=== PATIENT | female | born 1965 | race Caucasian/White ===

== ENCOUNTER 2024-01-17 07:22 | Observation (INO) ==
--- NOTE | 2023-11-28 08:32 | PAT Medication Instructions ---
Medication Instructions Date of Service November 28, 2023 Home Medications albuterol sulfate 90 mcg/actuation aerosol inhaler 1 inh inhalation QID PRN bupropion HCl 150 mg 24 hr tablet, extended release 150 mg PO QAM buspirone 10 mg tablet 10 mg PO BID celecoxib 200 mg capsule (Celebrex) 200 mg PO QAM cetirizine 10 mg capsule (Zyrtec) 10 mg PO BID losartan 25 mg tablet 25 mg PO QAM montelukast 10 mg tablet 10 mg PO QAM multivitamin 1 tab PO QAM pregabalin 50 mg capsule 50 mg PO BID ASK your surgeon for instructions celecoxib 200 mg capsule (Celebrex) 200 mg PO QAM DO NOT take the morning of surgery cetirizine 10 mg capsule (Zyrtec) 10 mg PO BID losartan 25 mg tablet 25 mg PO QAM multivitamin 1 tab PO QAM Take morning of surgery With a small sip of water, OTHERWISE NOTHING TO EAT OR DRINK AFTER MIDNIGHT: albuterol sulfate 90 mcg/actuation aerosol inhaler 1 inh inhalation QID PRN(use if needed; please bring with you to hospital day of surgery if possible) bupropion HCl 150 mg 24 hr tablet, extended release 150 mg PO QAM buspirone 10 mg tablet 10 mg PO BID montelukast 10 mg tablet 10 mg PO QAM pregabalin 50 mg capsule 50 mg PO BID Take evening before surgery albuterol sulfate 90 mcg/actuation aerosol inhaler 1 inh inhalation QID PRN(if needed) buspirone 10 mg tablet 10 mg PO BID cetirizine 10 mg capsule (Zyrtec) 10 mg PO BID pregabalin 50 mg capsule 50 mg PO BID Other Notes If you have any questions please call us at [phone] or [phone] or [phone] or [phone]
--- NOTE | 2023-11-28 11:19 | Anesthesiology Consultation ---
Date of Service November 28, 2023 Assessment & Plan (1) Encounter for pre-operative examination: Plan - upcoming S PCP pre-operative evaluation 12/06/23. - dental infection Rx Augmentin: she states completed antibiotic course as instructed by PCP. Chart Review Chart Review: Pending: Refer to Additional Notes / Consult section and Patient seen in Pre Admission Testing Teaching & Discussion Pre-Anesthesia Teaching/Discussion Notes: Instructed NPO after midnight before surgery, except medications with 15 cc of water. Medication instructions provided according to the PAT guidelines. History Surgery Operation Date: 12/26/23 08:40 Proposed Procedures p Left Knee Unicompartment Total Knee Arthroplasty - Ayo Henao MD Height/Weight Height: 5 ft 4 in Weight: 81.5 kg Allergies Allergy/AdvReac Type Severity Reaction Status Date / Time codeine Allergy Mild ITCHING Verified 11/27/23 15:33 hydrocodone Allergy Mild itching Verified 11/27/23 15:33 latex Allergy Mild skin Verified 11/27/23 15:33 irritation morphine Allergy Mild itch Verified 11/27/23 15:33 nickel Allergy Mild itching Verified 11/27/23 15:33 and rash oxycodone [From OxyContin] Allergy Mild itching/travis Verified 11/27/23 15:33 h tramadol Allergy Mild RASH Verified 11/27/23 15:33 [place] GOLD Allergy Mild itching/travis Uncoded 11/27/23 15:33 h Medications Home Medications Medication Instructions Recorded Confirmed Last Taken albuterol sulfate 90 mcg/actuation 1 inh inhalation QID PRN sob 11/27/23 11/27/23 Unknown aerosol inhaler bupropion HCl 150 mg 24 hr tablet, 150 mg PO QAM 11/27/23 11/27/23 Unknown extended release buspirone 10 mg tablet 10 mg PO BID 11/27/23 11/27/23 Unknown celecoxib 200 mg capsule (Celebrex) 200 mg PO QAM 11/27/23 11/27/23 Unknown cetirizine 10 mg capsule (Zyrtec) 10 mg PO BID 11/27/23 11/27/23 Unknown losartan 25 mg tablet 25 mg PO QAM 11/27/23 11/27/23 Unknown montelukast 10 mg tablet 10 mg PO QAM 11/27/23 11/27/23 Unknown multivitamin 1 tab PO QAM 11/27/23 11/27/23 Unknown pregabalin 50 mg capsule 50 mg PO BID 11/27/23 11/27/23 Unknown famotidine 10 mg tablet 10 mg PO BID PRN reflux 11/28/23 11/28/23 Unknown magnesium 100 mg tablet 100 mg PO PM 11/28/23 11/28/23 Unknown omega-3s 300 yr-uig-drg-other cap PO QAM 11/28/23 Unknown [id number] oil 1,000 mg capsule ([place]-3 Fish Oil) omeprazole 20 mg capsule,delayed 20 mg PO QAM 11/28/23 11/28/23 Unknown release valacyclovir 500 mg tablet 1,000 mg PO BID PRN Cold Sores 11/28/23 11/28/23 Unknown Additional Notes: Patient was instructed and it was written on provided medication instructions to take omeprazole morning of surgery, check with surgeon for instructions on Excedrin migraine, to continue pregabalin and valtrex and famotidine if needed and to not take magnesium morning of surgery and to stop fish-oil 2 weeks before surgery. She verbalized understanding and denied additional medications, questions or concerns. Past Medical History Medical History (Updated 11/28/23 @ 11:43 by Marilin Neely PA-C) Anxiety and depression Aortic aneurysm pcp monitors size yearly>no cads Arthritis Asthma has not needed inhaler for over 1 year Atrial septal aneurysm Cyst of left kidney Diverticulosis Fibromyalgia GERD (gastroesophageal reflux disease) patient states symptoms are not well controlled-waking at night burping, dysgeusia, dry heaving-states she is taking omeprazole and famotidine regularly History of anemia Hypertension Migraine Presence of pessary Sleep apnea no device Thyroid nodule no details/no biopsy Patient denies h/o stroke, seizures, heart attack, heart failure, DM, blood clots/DVTs or blood transfusions. Exercise / Class Metabolic Activity II 4-5 Yardwork/Stairs/Walk up hill (denies chest discomfort or shortness of breath with one flight of stairs) Past Surgical History Surgical History (Updated 11/28/23 @ 11:54 by Marilin Neely PA-C) H/O arthroscopic knee surgery right/left H/O laparoscopy adhesions removed History of bilateral breast reduction surgery History of bilateral tubal ligation History of carpal tunnel release right x 2 History of cholecystectomy History of colon resection r/t diverticulitis History of colonoscopy History of esophagogastroduodenoscopy (EGD) History of tooth extraction Hx of LASIK x 2 S/P trigger finger release right Past Anesthesia History No Hx of Anesthesia Complications and Other (father with nausea, vomiting and post-op urinary retention) History of PONV No Hx of PONV and No Hx of Motion Sickness Social History Smoking Status: Never smoker Do You Dip or Chew Tobacco: No Hx Alcohol Use: No substance use type: does not use Review of Systems Patient denies chest pain, shortness of breath, dyspnea on exertion, fever, chills, cough, wheezing, or palpitations. Physical Exam Vital Signs Vitals BP 147/100 automatic, 145/98 manual left arm sitting P 61 TEMP 98.2 SP02 96% on RA RESP 18 Physical Patient resting comfortably in chair in no acute distress, alert and oriented, responding appropriately throughout visit Full cervical extension range of motion without pain TMD 3.5 finger breadths Mallampati Score 3 Dentition: several crowns, denies chipped or loose teeth, caps, implants or bridges Lungs: normal respiratory effort. Good air movement, clear throughout to auscultation, no adventitious breath sounds Cardiac: regular rate and rhythm, no murmurs noted Carotid arteries: negative bruit bilat Lab Results Anesthesia Preop Results Results Anesthesia Widget: WBC 4.92 K/ul (4.8-10.8) 11/28/23 Hgb 14.2 g/dl (12.0-16.0) 11/28/23 Hct 41.6 % (37.0-47.0) 11/28/23 Plt 196 K/uL (130-400) 11/28/23 Na 139 mmol/L (136-145) 11/28/23 K 4.0 mmol/L (3.5-5.1) 11/28/23 Cl 105 mmol/L (98-107) 11/28/23 CO2 29 mmol/L (21-32) 11/28/23 BUN 14 mg/dl (6-23) 11/28/23 Creat 0.88 mg/dl (0.6-1.2) 11/28/23 Glucose Level 126 mg/dl (70-99(Fasting)) H 11/28/23 PT 11.6 Seconds (9.0-12.0) 11/28/23 PTT 28 Seconds (21-31) 11/28/23 INR 1.1 (0.9-1.1) 11/28/23 Urine Color Yellow 11/28/23 Urine Appearance Cloudy (Clear) A 11/28/23 Urine pH 7.0 (4.5-7.5) 11/28/23 Urine Specific [place] 1.015 (1.000-1.030) 11/28/23 Urine Protein Negative (Negative) 11/28/23 Urine Glucose (UA) Negative (Negative) 11/28/23 Urine Ketones Negative (Negative) 11/28/23 Urine Blood Negative (Negative) 11/28/23 Urine Nitrite Negative (Negative) 11/28/23 Urine Bilirubin Negative (Negative) 11/28/23 Urine Urobilinogen Negative (Negative) 11/28/23 Urine Leukocyte Esterase 2+ (Negative) H 11/28/23 Urine WBC (Auto) 0-5 /hpf (0-5) 11/28/23 Urine RBC (Auto) 3-5 /hpf (0-2) H 11/28/23 Urine Hyaline Casts (Auto) 0-2 /lpf (0-2) 11/28/23 Urine Epithelial Cells (Auto) 3-5 /hpf (0-2) H 11/28/23 Urine Bacteria (Auto) None Seen (None Seen) 11/28/23 Blood Type O Positive 11/28/23 Antibody Screen NEGATIVE 11/28/23 Testing Electrocardiogram Date: 11/28/23 NSR, rate 63 bpm Echocardiogram Date: 04/18/18 EF 65% Normal LV wall motion Moderately dilated ascending aorta 4.2 cm Mild tricuspid regurgitation Mild mitral regurgitation ASA-intact without interatrial shunt, ASD or PFO Other Testing Chest CT 09/11/23 No acute findings Dilation ascending aorta up to 4.5 cm
--- NOTE | 2023-12-24 17:18 | History & Physical Report ---
Date of Service December 24, 2023 Assessment & Plan (1) Osteoarthritis of left knee: Plan: Osteoarthritis left knee with failed conservative management. Patient has medial compartment osteoarthritis. Discussion was for unicompartmental versus total knee replacement. Apparently patient wants to discuss further day of surgery however at this point we will plan on unicompartmental knee replacement with total knee replacement as a backup pending further discussion with the patient. Osteoarthritis type: primary Qualified Code(s): M17.12 - Unilateral primary osteoarthritis, left knee History of Present Illness Chief Complaint: Chronic left knee pain Primary Care Provider: NO PCP 58-year-old female left knee pain failed conservative management. Prior arthroscopic surgery left knee. 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 Prior adverse reaction to viscosupplement injection. 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 Patient denies headaches, sweats, fevers, chills, double vision, blurred vision, cough, sore throat, dysphagia, chest pain, sob, wheezing, n/v/d/c, numbness, tingling, fatigue, urinary symptoms, mood disorders. ROS positive for asthma multiple areas of arthritis of the spine arthritis in chest and jaws has acid reflux hiatal hernia obesity. Allergies Allergy/AdvReac Type Severity Reaction Status Date / Time codeine Allergy Mild ITCHING Verified 11/27/23 15:33 hydrocodone Allergy Mild itching Verified 11/27/23 15:33 latex Allergy Mild skin Verified 11/27/23 15:33 irritation morphine Allergy Mild itch Verified 11/27/23 15:33 nickel Allergy Mild itching Verified 11/27/23 15:33 and rash oxycodone [From OxyContin] Allergy Mild itching/travis Verified 11/27/23 15:33 h tramadol Allergy Mild RASH Verified 11/27/23 15:33 [place] GOLD Allergy Mild itching/travis Uncoded 11/27/23 15:33 h Home Medications Medication Instructions Recorded Confirmed Type albuterol sulfate 90 mcg/actuation 1 inh inhalation QID PRN sob 11/27/23 11/27/23 History aerosol inhaler bupropion HCl 150 mg 24 hr tablet, 150 mg PO QAM 11/27/23 11/27/23 History extended release buspirone 10 mg tablet 10 mg PO BID 11/27/23 11/27/23 History celecoxib 200 mg capsule (Celebrex) 200 mg PO QAM 11/27/23 11/27/23 History cetirizine 10 mg capsule (Zyrtec) 10 mg PO BID 11/27/23 11/27/23 History losartan 25 mg tablet 25 mg PO QAM 11/27/23 11/27/23 History montelukast 10 mg tablet 10 mg PO QAM 11/27/23 11/27/23 History multivitamin 1 tab PO QAM 11/27/23 11/27/23 History pregabalin 50 mg capsule 50 mg PO BID 11/27/23 11/27/23 History famotidine 10 mg tablet 10 mg PO BID PRN reflux 11/28/23 11/28/23 History magnesium 100 mg tablet 100 mg PO PM 11/28/23 11/28/23 History omega-3s 300 rf-nvm-kpa-other cap PO QAM 11/28/23 History [id number] oil 1,000 mg capsule ([place]-3 Fish Oil) omeprazole 20 mg capsule,delayed 20 mg PO QAM 11/28/23 11/28/23 History release valacyclovir 500 mg tablet 1,000 mg PO BID PRN Cold Sores 11/28/23 11/28/23 History Past Med/Surg History Problem List (Updated 12/24/23 @ 17:17 by Ayo Henao MD) Osteoarthritis of left knee Encounter for pre-operative examination Medical History Presence of pessary Atrial septal aneurysm Fibromyalgia Arthritis Cyst of left kidney Diverticulosis GERD (gastroesophageal reflux disease) patient states symptoms are not well controlled-waking at night burping, dysgeusia, dry heaving-states she is taking omeprazole and famotidine regularly Thyroid nodule no details/no biopsy History of anemia Anxiety and depression Migraine Aortic aneurysm pcp monitors size yearly>no cads Hypertension Asthma has not needed inhaler for over 1 year Sleep apnea no device Surgical History History of bilateral breast reduction surgery History of carpal tunnel release right x 2 S/P trigger finger release right H/O arthroscopic knee surgery right/left History of esophagogastroduodenoscopy (EGD) History of bilateral tubal ligation History of colonoscopy History of colon resection r/t diverticulitis H/O laparoscopy adhesions removed History of cholecystectomy History of tooth extraction Hx of LASIK x 2 Social History Smoking Status: Never smoker Second Hand Exposure: Yes (occas.); Do You Dip or Chew Tobacco: No; Hx Alcohol Use: No Preferred Language: Indonesian Yarn Weight And Strength Tester Required: No Beliefs That Will Affect Care: None Current Living Situation: Spouse Feels Safe at Home: Yes Safety Concerns: Feels Safe At This Time Assistive Devices: Cane and Glasses Assistive Devices Comment: invisiline Review of Systems All systems reviewed & are unremarkable except as noted in HPI & below Physical Exam Constitutional: WD/WN, vitals as above Respiratory: normal respiratory effort; no respiratory distress Cardiovascular: Rate/Rhythm: regular rate and regular rhythm Musculoskeletal: Left knee with mild varus alignment no instability negative pivot shift negative Gavin exam. Mild knee effusion. 0 through 115 degrees range of motion. Distal circulation sensorimotor exam intact. Skin: no rashes, warm and dry Neurologic: normal touch/pain/proprioception Psychiatric: A+Ox3, euthymic affect Results & Data Diagnostic Findings [id number] medial compartment preserved lateral and patellofemoral compartments on MRI with intact lateral meniscus as well. Intact ACL PCL and collateral ligaments. Grade 4 medial compartment OA with bone edema both sides of the joint.
[~2024-01-17 07:22] MED LIST: ACETAMINOPHEN 500 MG TAB PO SCH; BUPIVACAINE 0.25% PF 30 ML VIAL ONE; BUPIVACAINE 0.5 % 5 MG/1 ML PF 10ML VIAL ONE; CeleBREX 200 MG CAP PO SCH; FAMOTIDINE 20 MG TAB PO SCH; GABAPENTIN 600 MG DOSE PO SCH; LR 500ML BOLUS, THEN 15ML/HR IV SCH; LR 60ML/HR IV SCH; METOCLOPRAMIDE HCL 10 MG TABLET PO SCH; ROPIVACAINE 0.5% HCL/PF 246 MG, Ketorolac (*for OR use only*) 30 MG in SODIUM CHLORIDE ... INFIL SCH; TRANEXAMIC ACID 1,000 MG **IV Intra-op IV SCH; TRANEXAMIC ACID 1,000 MG **IV Pre-op IV SCH; ceFAZolin 2000MG 2,000 MG/15 ML SYR IV SCH; dexAMETHasone**PF** 10 MG/ML VIAL IV SCH
--- NOTE | 2024-01-17 07:52 | History & Physical Bridge Note ---
Date of Service January 17, 2024 History & Physical Bridge Note I have examined the patient, reviewed the History & Physical and in the interval since the performance of the History & Physical I have noted the following changes of clinical significance: no changes noted
[2024-01-17] MEDS: LR 500ML BOLUS, THEN 15ML/HR IV SCH (08:04)
[2024-01-17] MEDS: ACETAMINOPHEN 500 MG TAB PO SCH ×2 (08:06→20:50)
[2024-01-17] MEDS: dexAMETHasone**PF** 10 MG/ML VIAL IV SCH (08:06)
[2024-01-17] MEDS: METOCLOPRAMIDE HCL 10 MG TABLET PO SCH (08:06)
[2024-01-17] MEDS: GABAPENTIN 600 MG DOSE PO SCH (08:06)
[2024-01-17] MEDS: FAMOTIDINE 20 MG TAB PO SCH (08:06)
[2024-01-17] MEDS: CeleBREX 200 MG CAP PO SCH (08:06)
[2024-01-17] MEDS: LR 60ML/HR IV SCH (08:07)
[2024-01-17] MEDS ORDERED: MIDAZOLAM HCL 1 MG/ML 2ML VIAL ONE ×2 (08:08→08:09)
[2024-01-17] MEDS ORDERED: fentaNYL citrate PF 100 MCG/2 ML VIAL ONE (08:09)
[2024-01-17] MEDS ORDERED: PHENYLEPHRINE HCL 10 MG/ML VIAL ONE (08:13)
[2024-01-17] MEDS ORDERED: ONDANSETRON INJ 2 MG/ML 2 ML VIAL IV PRN ×2 (08:17→13:13)
[2024-01-17] MEDS ORDERED: ATROPINE SULFATE 0.1 MG/ML 10ML SYR IV PRN (08:17)
[2024-01-17] MEDS ORDERED: ePHEDrine sulfate 50 MG/ML AMP IV PRN (08:17)
[2024-01-17] MEDS ORDERED: PROMETHAZINE HCL 6.25 MG in SODIUM CHLORIDE 0.9% 50 ML IV PRN (08:17)
[2024-01-17] MEDS ORDERED: fentaNYL citrate PF 100 MCG/2 ML VIAL IV PRN (08:17)
[2024-01-17] MEDS: TRANEXAMIC ACID 1,000 MG **IV Pre-op IV SCH (09:28)
[2024-01-17] MEDS: ceFAZolin 2000MG 2,000 MG/15 ML SYR IV SCH ×2 (09:42→17:17)
[2024-01-17] MEDS ORDERED: LIDOCAINE 2% 2 ML VIAL/AMP(20MG/ML) INFIL ONE (10:46)
[2024-01-17] MEDS ORDERED: ONDANSETRON INJ 2 MG/ML 2 ML VIAL ONE (10:46)
[2024-01-17] MEDS ORDERED: PROPOFOL IV EMULSION 10 MG/ML 20 ML VIAL IV ONE (10:46)
[2024-01-17] MEDS: ORTHO JOINT ANESTHETIC ONE (11:18)
[2024-01-17] MEDS: ROPIVACAINE 0.5% HCL/PF 246 MG, Ketorolac (*for OR use only*) 30 MG in SODIUM CHLORIDE ... INFIL SCH (11:18)
[2024-01-17] MEDS: TRANEXAMIC ACID 1,000 MG **IV Intra-op IV SCH (11:28)
--- NOTE | 2024-01-17 11:49 | Operative Report ---
Post Operative Report Pre & Post Diagnosis Operation Date: 01/17/24 09:25 Pre-Op Diagnosis: Left Knee Osteoarthritis Post-Op Diagnosis: Left Knee Osteoarthritis I identified the patient and participated in the time-out.: Yes Procedure Operation Date: 01/17/24 09:25 Actual Procedures p Left Total Knee Arthroplasty(Left), steffen and Acticoat superficial wound VAC application- Ayo Henao MD Surgeon Ayo Henao MD Research Interviewer Jose Carlos SERNA Estimated Blood Loss 56 Findings Consistent with Post-Op Diagnosis Specimens Bone cuts Drains 2 Hemovac Anesthesia Type MAC Spinal Regional Complications none Disposition Disposition: Recovery Room Indications 58-year-old female with progressive osteoarthritis of her left knee. History of prior partial medial meniscectomy in the past. 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 Patient was given choice of unicompartmental knee replacement versus total knee replacement and she wanted to proceed with total knee replacement. Description of Procedure The patient was taken to the operating room and anesthetized under spinal MAC regional block. Patient was placed supine on the the operating table. A pneumatic tourniquet was placed about the left upper thigh. The knee exam demonstrated 5 degree flexion contracture with flexion to 130 degrees no instability. The involved leg was elevated exsanguinated with Esmarch bandage and the pneumatic tourniquet was raised to 275 millimeters mercury. A longitudinal incision was made across the anterior knee. Skin flaps were elevated. An incision was made into the medial retinaculum and extended up into the mid third of the quadriceps tendon and extended down to the tibial tubercle. Intra-articular findings demonstrated medial compartment [id number] isolated arthritis in the medial compartment.. The knee was exposed by excising cruciate ligaments and menisci. The infrapatellar fat pad was resected. The fat pad over the anterior femur at the upper aspect of the articular surface was resected for placement of the component in that area. A subperiosteal peel lateral release was performed around the patella. The [employer]hew journey 2.0 posterior stabilized total knee arthroplasty system was utilized for the procedure. The drill hole was made into the intramedullary canal the guide alley was placed in the femur and the distal femoral cutting guide was applied to resect a standard distal femoral cut at a 5 degree valgus angle. The distal femoral cut was made. Femur was sized to a size device for a size 5. The drill holes were placed in 3 degrees of external rotation. The size 5, 5 in 1 cutting block was placed. The anterior posterior and chamfer cuts were made. The knee was extended and a free hand cut technique was performed to the patella. The patella width was measured and the width was reproduced using a 32 mm symmetrical patella component. The excess lateral facet was beveled off to prevent any impingement. 3 drill holes are made for the patella component pegs. The tibia was then subluxed. The external tibial cutting guide was adjusted for slope and alignment with the tibia and was pinned in position and the proximal tibial cut was made with the oscillating saw. Flexion and extension gaps were balanced. No releases were required. The size 4 tibial trial was externally rotated in line with the tibial tubercle and pinned in position. The drill and punch for the stem was used. The femoral trial was inserted and centered the notch cutting devices were used and the collet was placed. Tibial trials were used for the insert. The size 9 mm trial gave balanced ligaments through full range of motion. Patella tracking was assessed with range of motion. The patella tracked centrally. The trials were removed. The Orthomix anesthetic cocktail was injected per protocol. The cut bone surfaces and soft tissue were copiously irrigated with pulsatile lavage saline solution. The final components were cemented with Palacos cement. The final components were [employer] Nephew journey 2.0 size 5 posterior stabilized left femur, 4 left tibia, 9 mm left posterior stabilized tibial polyethylene at 32 mm symmetrical patella.. Xperience irrigation was placed over metal tray prior to polyethyle insertion. After the cement cured, the knee was then copiously irrigated with pulsatile lavage Xperience solution. 2 drains were brought out laterally connected to Hemovac. The quadriceps tendon and medial retinaculum were closed with interrupted #2 FiberWire sutures around the distal quad and medial retinacul and 1 additional #2 FiberWire at the apex of the split in the quad proximally and 1 additional [id number] #2 FiberWire at the level of the tibial polyethylene. 0 strata fix was placed from the superior split the quad down to the inferior patella and the inferior medial retinaculum closely obtained [id number] number Vicryl sutures. the knee was taken through full range of motion and repair was secure. Knee range of motion was 0 through 130 degrees. the subcutaneous tissues were closed with 2-0 Vicryl sutures. The skin was closed with surgical august. A steffen and Acticoat superficial wound VAC was applied. The tourniquet was let down and the patient had good capillary refill to the extremity. The patient tolerated the procedure well. My physician therapy administrative assistant Jose Carlos SERNA participated as first cook and was integral part in all aspects of the procedure including prepping, draping, leg positioning, soft tissue retraction, instrument management and assisted in the closure , superficial wound VAC application application and will participate in postoperative care the patient. I attest to the content of the Intraoperative Record and any orders documented therein. Any exceptions are noted below.
--- NOTE | 2024-01-17 13:08 | XRay Report ---
XR knee LT 1 or 2V routine HISTORY: 58 years-old Female Surgical Post Op left knee arthroplasty COMPARISON: 01/29/2023 TECHNIQUE: 2 views of the left knee FINDINGS: Total joint arthroplasty with patellar resurfacing. Anterior midline skin august with surgical drain age catheter, expected postoperative soft tissue swelling with deep tissue air. No acute fracture or malalignment. IMPRESSION: Total joint arthroplasty with expected postoperative changes. ACT 112: Negative or not required by law. The above report was generated using voice recognition software. It may contain grammatical, syntax o r spelling errors. Electronically signed by: Alejandro Oliver M.D. 01/17/2024 1:06 PM
[2024-01-17] MEDS ORDERED: MAGNESIUM HYDROXIDE SUSP 30 ML UDC PO PRN (13:13)
[2024-01-17] MEDS ORDERED: diphenhydrAMINE Capsule 25 MG CAP PO PRN (13:13)
[2024-01-17] MEDS ORDERED: oxyCODONE HCL IR 5 MG TAB (IMMEDIATE RELEASE) PO PRN (13:13)
[2024-01-17] MEDS ORDERED: METOCLOPRAMIDE HCL INJ 5 MG/ML 2 ML VIAL IV PRN (13:13)
[2024-01-17] MEDS ORDERED: valACYclovir HCL 500 MG TABLET PO PRN (13:13)
[2024-01-17] MEDS ORDERED: FAMOTIDINE 10 MG TABLET PO PRN (13:13)
[2024-01-17] MEDS ORDERED: HYDROmorphone INJ 0.5 MG/0.5 ML SYR IV PRN (13:13)
[2024-01-17] MEDS ORDERED: NALOXONE HCL 0.4 MG/1 ML VIAL/CARP IV PRN (13:13)
[2024-01-17] MEDS ORDERED: ALBUTEROL HFA 8 GM INHALER INH PRN (13:13)
[2024-01-17] MEDS ORDERED: bisacodyL 10 MG SUPP PR PRN (13:13)
[2024-01-17] MEDS ORDERED: ALUMINUM/MAGNESIUM SUSP 30 ML UDC PO PRN (13:13)
--- OUTSIDE RECORDS SUMMARY | 2024-01-17 14:10 | External Medical Summary | Summary of Care ---
Author Name Unknown Organization [facility] Address [address] [place] [address] Phone [phone] Care Team Providers Care Civil Transportation Engineer Name Role Phone Sunita Duvall Primary Care Provider Natalia vailable Reason for Referral * Precert (Diagnostic Medical) (Within 10 days (routine)) - Authorized Specialty Diagnoses / Procedures Referred By Contac t Referred To Contact Cardiac Studies Diagnoses Aneurysm of ascending aorta without rupture (HCC) Procedures ECHO, COMPLETE (2D), TRANS-THORACIC Sheri Lee CRNP [address] [place] [id number] Referral ID Status Reason Start Date Expiration Date V isits Requested Visits Authorized [id number] Authorized Precert 12/16/2023 999 999 Reason for Visit * Reason Onset Date Comments Referral 12/10/2023 Encounter Details Date Type Department Care Team (Late st Contact Info) Description 12/10/2023 New Patient Triage ([facility] [employer]PERIENCE SPECIALIST USE ONLY) Cardiology, [address] [address] Krissy Chapa CRNP [address] [place] [address] Referral Allergies Active Allergy Reactions Criticality Noted Date Comments Codeine Itching,Rash 07/20/2010 Hydrocodone 04/01/2010 Latex Other (Please comment) Medium 01/17/2012 Pt unsure of reaction. Morphine 03/10/2004 "Skin crawling" sensation Oxycodone 04/01/2010 Oxycodone Hcl Itching,Rash 07/22/2010 Oxycodone-Acetaminophe n Itching 07/21/2010 Tramadol Itching,Rash 07/22/2010 Hydrocodone-Acetaminop hen Itching,Rash 04/24/2012 documented as of this encounter (statuses as of 12/17/2023) Medications Medication Sig Dispensed Refills Start Date End Date Status cetirizine (ZYRTEC) 10 MG TabletIndications: Allergic dermatitis Take 1 Tablet by mouth in the morning. 30 Tab 07/17/2016 Active Aspirin-Acetaminop hen-Caffeine 250-250-65 MG Oral Tablet 2 Tablets every 8 hours as needed (Uses daily for migraine prevention). Active Magnesium 100 MG Oral Capsule Take 1 Cap by mouth daily. Takes 1 tablet in the evening - unsure of the strength 90 Cap 3 09/09/2020 Active Additional Information Patient not taking.Reported on 12/06/2023 Ketoconazole 2 % External Cream Apply to bilateral feet twice daily for 2 weeks and then as needed 60 g 3 07/21/2022 Active Ciclopirox 8 % External Solution Apply over nail and surrounding skin. Apply daily over previous coat. After seven (7) days, may remove with alcohol and continue cycle. 6.6 mL 11 08/21/2022 Active Famotidine 10 MG Oral Tablet (Pepcid) Take 1 Tablet by mouth 2 times a day as needed for Heartburn. Active Montelukast Sodium 10 MG Oral Tablet (Singulair) TAKE 1 TABLET BY MOUTH EVERY DAY IN THE MORNING 90 Tablet 2 12/11/2022 Active valACYclovir HCl 1 GM Oral Tablet (Valtrex) Take 2 Tablets by mouth in the morning and 2 Tablets before bedtime. For 1 day for cold sores. 4 Tablet 11 02/21/2023 Active Celecoxib 100 MG Oral Capsule (CeleBREX)Indicati ons:Costochondriti s Take 1 Capsule by mouth in the morning. for pain. 30 Capsule 5 07/31/2023 Active buPROPion HCl ER (XL) 150 MG Oral Tablet Extended Release 24 Hour (Wellbutrin XL) TAKE 1 TABLET BY MOUTH EVERY DAY IN THE MORNING 90 Tablet 1 09/18/2023 Active Pregabalin 50 MG Oral Capsule (Lyrica) TAKE 1 CAPSULE BY MOUTH IN THE MORNING, 1 CAPSULE AT NOON AND 1 CAPSULE BEFORE BEDTIME. 90 Capsule 1 09/19/2023 Active busPIRone HCl 10 MG Oral Tablet (Buspar)Indication s:Anxiety TAKE 1 TABLET BY MOUTH TWICE A DAY 180 Tablet 1 11/14/2023 Active Chlorhexidine Gluconate 0.12 % Mouth/Throat Solution (Periogard)Indicat ions:Dental infection Swish and spit 15 mL in the morning and 15 mL before bedtime. 473 mL 11/17/2023 Active Additional Information Patient not taking.Reported on 12/06/2023 Omeprazole 40 MG Oral Capsule Delayed Release (PriLOSEC)Indicati ons:Gastroesophage al reflux disease without esophagitis Take 1 Capsule by mouth in the morning. 1 hour before the first meal of the day. 90 Capsule 1 12/06/2023 Active Losartan Potassium 50 MG Oral Tablet (Cozaar)Indication s:HTN, goal below 140/90 Take 1 Tablet by mouth in the morning. 90 Tablet 1 12/06/2023 Active Mupirocin 2 % External Ointment (Bactroban) Apply topically to affected area 2 times a day as needed (skin rash) for up to 14 days. To affected area for up to 14 days. 22 g 12/06/2023 12/20/2023 Active documented as of this encounter (statuses as of 12/17/2023) Active Problems Problem Noted Date Diagnosed Date Gastroesophageal reflux disease 02/10/2021 Hiatal hernia 02/10/2021 DDD (degenerative disc disease), cervical 2020 Chronic pain of left knee 12/02/2018 Primary osteoarthritis of knees, bilateral 12/02 Chronic fatigue 03/11/2018 Ascending aortic aneurysm 04/16/2017 Overview: CT chest 04/21 stable 4.[address] chest 04/22: stable 4.2 cm aneurysm; saw cardiology and 1 year f/u echo recommended Generalized osteoarthritis of multiple sites Fibromyalgia 03/30/2016 Mixed rhinitis 02/16/2016 Renal cyst, acquired, left 09/25/2012 Overview: 7/13-7 mm simple cyst left upper pole. Otherwise unremarkable renal ultrasound. Intermittent asthma with reliever use up to twic e per week 07/26/2010 H/O gastroesophageal reflux (GERD) 01/21/2009 Overview: ugi--09/26/12--VERY SM SL HH. NO GERD, SP CHOLECYSTECTOMY.----dc ppi after 1 mth Overweight (BMI 25.0-29.9) 06/18/2007 Overview: [id number]--igh cbc, bmp, lft ,lipids,ua triple phos bernadette 06/18/2007: BMI: 28.31 kg/m Ht and wt without shoes. Allergic rhinitis 06/18/2007 Overview: Female stress incontinence 06/18/2007 Major depressive disorder, single episode, moder ate 03/29/2007 Overview: 04/01/2007: tsh 2.43, FT4-1.41.--started zoloft 50, buspar 5 mg tid prn--dizzy feeling. Agoraphobia without history of panic disorder Migraine without aura 07/01/2003 BENIGN HYPERTENSION documented as of this encounter (statuses as of 12/17/2023) Resolved Problems Problem Noted Date Diagnosed Date Resolved Date Acute tear medial meniscus, left, subsequent encounter 12/30/2018 04/16/2019 Internal derangement of knee joint, left 12/02/2018 04/16/2019 Rash and nonspecific skin eruption 03/29/2016 06/28/2016 Seasonal and perennial allergic rhinitis 08/23/2015 02/16/2016 Overview: Margaux n/h, claritin n/e in past. Abnormal finding on imaging 04/29/2015 06/28/2016 Overview: 04/20--CT PE pro-5-6 mm nodular density in the peripheral right infrahilar region may represent lymph node---sl more prominent comp to 2012--rpt 1 yr rec(nonsmoker)- if neg no fu. Lipid screening 04/23/2015 06/28/2016 Overview: Nl 02/16 Screening for diabetes mellitus 04/23/2015 06/28/2016 Overview: Nl 02/16 with tsh,bmp Carpal tunnel syndrome 08/07/201409/06 Overview: 08/17--EMG--kaylin cts--refer>rT sg 09/16, Left--mild sx only-defers sg Advance directive discussed with patient 02/27/2014 06/28/2016 Overview: No, Advance Directive brochure given to patient at prior appointment. Other chest pain 11/07/2012 06/28/2016 Snoring 10/31/2012 09/06/2017 Overview: 12/04/12 Sleep Clinic/Dr Quintana: start Auto-PAP 5-15 cm H2O 11/20/12 Sleep Study/Dr Quintana: mild CLARIBEL associated with oxygen desat, CPAP titration study 10/15--abn night ox--rec sleep study--rome pulm 10/17/12 Joint pain, knee 10/10/2010 06/28/2016 UNSPECIFIED ABNORMAL MAMMOGR AM- FOCAL ASYMMETRY LEFT BREAST 09/26/2010 08/23/2015 Backache 08/17/2010 04/16/2019 Overview: 08/04/10 MRI lspine--desiccated L4/L5 disc with local left posterolateral annular fissure no focal disc protrusion or spinal stenosis. No sig interval change. Enthesopathy of knee 03/17/2010 018 Overview: 09/14-saw Khoa--had aspiration knee--r/o septic arthritis_was told tests nml 08/15--Hubert barrett--did not rec TKR-as has mild oa. 08/01/11 MRI Rt Knee/Dr Bunn: interval partial medial meniscectomy, reduction in intraarticular effusion & in medial popliteal cyst since previous exam. Compared to 03/11/10. 05/11/11 Dr Bunn: synvisc inj rt knee 03/30/10 Dr Mix/Rt knee arthroscopy with partial medial meniscectomy 03/11/10 MRI Rt Knee/[facility] - Dr Mix: Lg joint effusion, Focal full thickness tear of post horn med meniscus. 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 h/o DIVERTICULITIS OF COLON 06/18/2007 06/28/2016 Overview: Apr 19, 2006:csope:Dr.Haight Bobo rabago; diverticulosis of the sigmoid colon. Previous end to end colo-colonic anastamosis of the sigmoid colon. [id number] colectomy DIARRHEA SP cholecystectomy 06/18/2007 06/28/2016 Dyspnea and respiratory abnormality 06/18/2007 06/28/2016 Overview: Tonsillar Enl Rt >>lt ICD-10 update of inactive term Hypertrophy of breast 06/26/20032007 Chest pain 03/25/2001 06/18/2007 Headache 03/25/2001 06/18/2007 Overview: ICD-10 update of inactive term Asthma, allergic 08/26/2009 Overview: Advair 100/50, maxair prn, pillo-sanaz - Tear of cartilage or meniscu s of knee, current 09/06/2017 Overview: Right knee surgery to repair torn meniscus in Mar documented as of this encounter (statuses as of 12/17/2023) Immunizations Name Administration Dates Next Due PPD 05/18/2005 Pneumococcal Polysaccharide PPV23 (Pneumovax) 09/16/2015,06/25/2013(Deferred: Patient Refused) Seasonal Influenza Vac., MDV , IM, 0.5 mL (Fluzone) 01/17/2012,12/29/2010(Deferred: Patient Refused) Seasonal Influenza, PF, 6 M & above, IM , (FluLaval or Fluzone) 11/11/2020,01/30/2020,04/16/2019,03/11,01/15/2017 Seasonal Influenza, Quadriva lent, No Preserve, IM 12/13/2015,04/23/2015 TD, Preservative Free 11/08/2017 TDAP, Age 7 and older, IM (Adacel) 06/18/2007 documented as of this encounter Social History Tobacco Use Types Packs/Day Years Used Date Smoking Tobacco: Never Smokeless Tobacco: Never Comments:no passive smoke Alcohol Use Standard Drinks/Week Comments No 0 (1 standard drink = 0.6 oz pur e alcohol) PHQ-2 Answer Date Recorded PHQ Adult Total Score 0 05/05/2022 Hunger Vital Sign Answer Date Recorded Within the past 12 months, y ou worried that your food would run out before you got the money to buy more. Never true 09/01/19 23 Within the past 12 months, t he food you bought just didn't last and you didn't have money to get more. Never true 08/31/2022 Childcare Answer Date Recorded Do you feel overwhelmed with taking care of a child, family member or friend? No 08/31/2022 Does your family need help f inding childcare? (Household - for ages 0-17 years) Not on file 08/31/2022 Clothing Answer Date Recorded Have you been unable to get clothing when it was really needed? No 08/31/2022 Is your family able to get c lothes or diapers when needed? (Household - for ages 0-17 years) Not on file 08/31/2022 Personal Safety Answer Date Recorded Do you feel unsafe or have concerns for your saf ety? No 08/31/2022 Do you have concerns for you r family's safety? (Household - for ages 0-17 years) Not on file 08/31/2022 Utilities Answer Date Recorded Do you have trouble paying y our heating, water, or electric bill? (Adult - for ages 18 years and over) Not on file 09/03/2023 Is your family able to pay t he heat, water, or electric bill? (Household - for ages 0-17 years) Not on file 09/03/2023 Does your family have access to good internet? (Household - for ages 0-17 years) Not on file 09/03/2023 Employment Status Answer Date Recorded Are you unemployed or without regular income? No 08/31/2022 Does the household have a re gular source of income? (Household - for ages 0-17 years) Not on file 08/31/2022 Social Connections Answer Date Recorded How often do you feel lonely or isolated from those around you? (Adult - for ages 18 years and over) Not on file 09/03/2023 Financial Resource Strain Answer Date R ecorded Do you have any trouble payi ng for your medications, or do you think you might in the future? No 08/31/2022 Does your family have troubl e paying for medicine? (Household - for ages 0-17 years) Not on file 08/31/2022 Transportation Needs Answer Date Record ed READ ONLY Do you have troubl e getting a ride to medical visits or work? Never True 08/31/2022 Does your family have a hard time getting a ride to doctors visits? (Household - for ages 0-17 years) Not on file 08/31/2022 Has lack of transportation k ept you from medical appointments, meetings, work, or from getting things needed for daily living? Check all that apply. (Adult - for ages 18 years and over) Not on file 08/31/2022 Do you (or your family) have trouble finding or paying for a ride (transportation)? (Household - for ages 0-17 years) Not on file 08/31/2022 Housing Stability Answer Date Recorded Do you currently live in a s helter or have no steady place to sleep at night? No 08/31/2022 READ ONLY Do you think you a re at risk of becoming homeless? No 08/31/2022 Does your family worry about paying for your home or becoming homeless? (Household - for ages 0-17 years) Not on file 0 08/31/2022 Are you homeless or worried that you might be in the future? (Adult - for ages 18 years and over) Not on file Are you (or your family) jailyn eless or worried that you might be in the future? (Household - for ages 0-17 years) Not on file Food Insecurity Answer Date Recorded Do you need food for this week? No 08/31/2022 Are you able to get enough f ood for your family? (Household - for ages 0-17 years) Not on file 08/31/2022 Does your family need food t his week? (Household - for ages 0-17 years) Not on file 08/31/2022 Do you always have enough fo od for your family? (Household - for ages 0-17 years) Not on file 08/31/2022 Sex and Gender Information Value Date Recorded Sex Assigned at Female 06/04/2018 4:05 PM EDT Gender Identity Female 06/04/2018 4:05 PM EDT Sexual Orientation Straight 06/04/2018 4: 05 PM EDT Job Start Date Occupation Industry Not on file Not on file Not on file documented as of this encounter Progress Notes * Beatriz Taylor OSA - 12/17/2023 10:18 AM EDT Appt with Dr. Siu on 03/17/24 was canceled and needs rescheduled as well. Attempted to contact pt,LMOM for pt to schedule * Sheri Lee CRNP - 12/15/2023 5:57 AM EDT Does patient need to be seen?: Yes Modality: Office visit Urgency: Within 30 days (routine) Discussed care plan with patient or proxy?: Yes Terrahart Communicated with patient on Date (mm/rosa/chen): 12/10/2023 at Time ([facility]): 1444 58 year old female referred by PCP to re-establish care due to Aneurysm of ascending aorta. EKG 11/28/2023 Last dated echo 04/18/2018 Interpretation Summary The left ventricular endocardium is adequately assessed using ultrasonic contrast. Calculated LV ejection Fraction = 65% (bi-plane method of discs). The left ventricular cavitysize is normal. The LV wall thickness is normal. There is no left ventricular mural thrombus. The left ventricular wall motion is normal. Moderately dilated ascending aorta (4.2 cm). No prior studiesfor comparison. NonContrast CT Chest dated 09/16/2020 IMPRESSION: Stable 44 x 43 mm ascending aortic aneurysm. No rupture. Patient is scheduled to see Dr. Siu 03/17/24. Can we please have patient scheduled for an echocardiogram 1-2 weeks prior to her cardiology appt. I have placed the order already Appropriate referral. Thank you, TEJINDER [facility] * Vivian Melgar LPN - 12/10/2023 2:44 PM EDT Images from the original note were not included. New Patient Triage What is the diagnosis/reason for referral?: Aneurysm of ascending aorta without rupture (HCC) [I71.21] - Primary Enter order ID here: [id number] Specialty specific documentation: Other Ask A doc done by Dr Montemayor Pt previous estab pt with our clinic, lost to follow up. PCP & Dr Montemayor recommending she re-estab to follow AAA. Discussed care plan with patient or proxy?: Yes myg msg to pt Communicated with patient on Date (mm/dd/yyyy): 12/09 at Time ([facility]): 1500 APPOINTMENT INFO: 03/17/24 Dr Siu INFO FROM CARDIAC REFERRAL Referred by PCP Jadiel EKG/ECHO/ZIO/CARDIAC TESTING LABS Results for orders placed or performed in visit on 08/21/23 COMPREHENSIVE METABOLIC PANEL Result Value Ref Range BUN 15 6 - 20 mg/dL CREATININE 0.9 0.5 - 1.0 mg/dL EGFR 75 >=60 mL/min SODIUM 143 135 - 146 mmol/L POTASSIUM 4.4 3.5 - 5.1 mmol/L CHLORIDE 108 (H) 98 - 107 mmol/L CO2 24 22 - 32 mmol/L ANION GAP 11 7 - 15 mmol/L GLUCOSE 97 70 - 120 mg/dL Albumin 4.5 3.8 - 5.0 g/dL AST 17 10 - 35 U/L Alkaline Phosphatase 109 35 - 130 U/L Bilirubin, Total 0.6 <=1.2 mg/dL CALCIUM 9.6 8.4 - 10.2 mg/dL Protein 6.9 6.0 - 8.3 g/dL ALT 22 10 - 35 U/L MAGNESIUM Result Value Ref Range Magnesium 2.2 1.5 - 2.6 mg/dL VITAMIN B12 Result Value Ref Range Vitamin B12 475 232 - 1,245 pg/mL LIPID PANEL WITH DIRECT LDL IF TG IS HIGH Result Value Ref Range Triglycerides 91 <=174 mg/dL Cholesterol 198 <200 mg/dL HDL Cholesterol 53 >49 mg/dL Non-HDL Cholesterol 145 <=159 mg/dL LDL Cholesterol 127 <=129 mg/dL CBC Result Value Ref Range WBC 5.69 4.00 - 10.80 K/uL RBC 4.58 3.85 - 5.15 M/uL HGB 14.5 12.0 - 15.3 g/dL HCT 43.1 36.0 - 45.2 % MCV 94.1 81.5 - 97.5 fL MCH 31.7 27.0 - 34.0 pg MCHC 33.6 32.0 - 36.0 g/dL RDW 12.5 11.5 - 15.5 % PLT 216 140 - 400 K/uL MPV 11.1 6.6 - 11.1 fL nRBCs 0 <=0 /100 WBCs DIFFERENTIAL, AUTOMATED Result Value Ref Range WBC 5.69 4.00 - 10.80 K/uL Neutrophils % 64.7 40.0 - 75.0 % Lymphocytes % 21.6 18.0 - 42.0 % Monocytes % 9.8 1.0 - 11.0 % Eosinophils % 2.1 0.0 - 6.0 % Basophils % 1.1 0.0 - 2.0 % Immature Granulocytes % 0.7 0.0 - 2.0 % Absolute Neutrophils 3.68 1.80 - 7.70 K/uL Absolute Lymphocytes 1.23 1.00 - 4.80 K/ul Absolute Monocytes 0.56 0.00 - 1.10 K/uL Absolute Eosinophils 0.12 0.00 - 0.70 K/uL Absolute Basophils 0.06 0.00 - 0.20 K/uL Absolute Immature Granulocytes 0.04 0.00 - 0.20 K/uL *Note: Due to a large number of results and/or encounters for the requested time period, some results have not been displayed. A complete set of results can be found in Results Review. MEDICATIONS Current Outpatient Medications Medication Sig Dispense Refill cetirizine (ZYRTEC) 10 MG Tablet Take 1 Tablet by mouth in the morning. 30 Tab 0 Lzhiruf-Xhqiqpoalygud-Svtfhzwq 250-250-65 MG Oral Tablet 2 Tablets every 8 hours as needed (Uses daily for migraine prevention). Magnesium 100 MG Oral Capsule Take 1 Cap by mouth daily. Takes 1 tablet in the evening - unsure of the strength (Patient not taking: Reported on 12/06/2023) 90 Cap 3 Ketoconazole 2 % External Cream Apply to bilateral feet twice daily for 2 weeks and then as needed 60 g 3 Ciclopirox 8 % External Solution Apply over nail and surrounding skin. Apply daily over previous coat. After seven (7) days, may remove with alcohol and continue cycle. 6.6 mL 11 Famotidine 10 MG Oral Tablet (Pepcid) Take 1 Tablet by mouth 2 times a day as needed for Heartburn. Montelukast Sodium 10 MG Oral Tablet (Singulair) TAKE 1 TABLET BY MOUTH EVERY DAY IN THE MORNING 90Tablet 2 valACYclovir HCl 1 GM Oral Tablet (Valtrex) Take 2 Tablets by mouth in the morning and 2 Tablets before bedtime. For 1 day for cold sores. 4 Tablet 11 Celecoxib 100 MG Oral Capsule (CeleBREX) Take 1 Capsule by mouth in the morning. for pain. 30 Capsule 5 buPROPion HCl ER (XL) 150 MG Oral Tablet Extended Release 24 Hour (Wellbutrin XL) TAKE 1 TABLET BY MOUTH EVERY DAY IN THE MORNING 90 Tablet 1 Pregabalin 50 MG Oral Capsule (Lyrica) TAKE 1 CAPSULE BY MOUTH IN THE MORNING, 1 CAPSULE AT NOON AND 1 CAPSULE BEFORE BEDTIME. 90 Capsule 1 busPIRone HCl 10 MG Oral Tablet (Buspar) TAKE 1 TABLET BY MOUTH TWICE A DAY 180 Tablet 1 Chlorhexidine Gluconate 0.12 % Mouth/Throat Solution (Periogard) Swish and spit 15 mL in the morning and 15 mL before bedtime. (Patient not taking: Reported on 12/06/2023) 473 mL 0 Omeprazole 40 MG Oral Capsule Delayed Release (PriLOSEC) Take 1 Capsule by mouth in the morning. 1 hour before the first meal of the day. 90 Capsule 1 Losartan Potassium 50 MG Oral Tablet (Cozaar) Take 1 Tablet by mouth in the morning. 90 Tablet 1 Mupirocin 2 % External Ointment (Bactroban) Apply topically to affected area 2 times a day as needed (skin rash) for up to 14 days. To affected area for up to 14 days. 22 g 0 No current facility-administered medications for this visit. documented in this encounter Plan of Treatment Scheduled Orders Name Type Priority Associated Diagnoses Orde r Schedule ECHO, COMPLETE (2D), TRANS-THORACIC Echocardiology Routine Aneurysm of ascending aorta without rupture (HCC) Expected: 12/16/2023 (Approximate), Expires: 12/14/2024 Scheduled Procedures Name Priority Associated Diagnoses Date/Ti me COLONOSCOPY FLEXIBLE PROXIMA L DIAGNOSTIC Recall Encounter for screening colonoscopy Health Maintenance Due Date Last Done Comments HIV Screening 05/27/1982 Hepatitis C Screening 05/27/1985 Hepatitis B Vaccine (1 of 3 - 19+ 3-dose series) 05/27/1986 HPV/Co-Test 05/27/1997 Fecal Occult Blood Test 05/27/2012 07/21/19 11, 07/14/2009, 06/23/2008, Additional history exists Sigmoidoscopy 05/27/2012 Pneumococcal Vaccine: Pediatrics (0 to 5 Years) and At-Risk Patients (6 to 64 Years) (2 of 2 - PCV) 09/15/2016 09/16/2015 Zoster Vaccines (1 of 2) 05/27/2017 Cologuard 10/01/2020 10/01/2017 Cervical Cancer Screening 03/28/2021 Pap Smear 03/28/2021 03/28/2018, 03/05, 12/11/2012, Additional history exists Depression Monitoring 05/06/2023 05/05/2022 Mammogram 06/30/2023 06/29/2022, 10/2020, 05/17/2017, Additional history exists COVID-19 Vaccine ( - season) 2023 Influenza Vaccine (FLU shot) (#1) 2023 11/11/2020, 01/30/2020, 04/16/2019, Additional history exists GFR 08/20/2024 08/21/2023, /11/2022, 01/22/2020, Additional history exists Albumin/Creatinine Ratio 06/21/2025 06/21/2022 Diabetes Screening 08/20/2026 08/21/2023, 0 04/13/2022, 01/22/2020, Additional history exists DTap/Tdap Vaccines (7 - Td or Tdap) 11/09/2027 11/08/2017, 06/18/2007, 01/09/1997, Additional history exists Lipid Panel 08/20/2028 08/21/2023, 1210/2015, 02/05/2015, Additional history exists Colonoscopy 09/24/2028 09/24/2018, 09/24/2018 Colorectal Cancer Screening 09/24/2028 HPV (Gardasil) Vaccine Aged Out No lo nger eligible based on patient's age to complete this topic MENINGOCOCCAL (MENACTRA/MENVEO) Aged Out No longer eligible based on patient's age to complete this topic documented as of this encounter Medical Devices Not on filedocumented as of this encounter Visit Diagnoses Diagnosis Aneurysm of ascending aorta without rupture (HCC)- Primary documented in this encounter Advance Directives * Full Code (Latest Code Status on File) Date Activated Date Inactivated Comments 05/09/2018 6:42 AM 05/09/2018 3:44 PM This order ref lects the patients wishes and were consensually agreed upon. Question Answer Comments Discussion of Advance Directives occurred with: Not Discussed Does the patient have a Living Will? No Does the patient have Health Care Power of Attor cornelius? No Care Teams Civil Transportation Engineer Relationship Specialty Start Date End Date Sunita Duvall CRNP PCP - General Nurse Practitioner 04/13/22 12/10/23 documented as of this encounter
--- OUTSIDE RECORDS SUMMARY | 2024-01-17 14:10 | External Medical Summary | Summary of Care ---
Author Name Unknown Organization [facility] Address [address] [facility] [place] [address] Phone [phone] Care Team Providers Care Casing Runner Name Role Phone Unavailable Primary Care Provider Unavailabl e Reason for Visit * Reason Onset Date Comments Medication Refill 01/09/2024 Encounter Details Date Type Department Care Team (Late st Contact Info) Description 01/09/2024 Refill [facility] [address] [facility] [place] [phone] Sheri Chávez MD [address] [facility] [place] [place] [address] Allergic rhinitis, unspecified seasonality, unspecified trigger*; Intermittent asthma with reliever use up to twice per week without complication Allergies Active Allergy Reactions Criticality Noted Date Comments Codeine Itching,Rash 07/20/2010 Hydrocodone 04/01/2010 Latex Other (Please comment) Medium 01/17/2012 Pt unsure of reaction. Morphine 03/10/2004 "Skin crawling" sensation Oxycodone 04/01/2010 Oxycodone Hcl Itching,Rash 07/22/2010 Oxycodone-Acetaminophe n Itching 07/21/2010 Tramadol Itching,Rash 07/22/2010 Hydrocodone-Acetaminop hen Itching,Rash 04/24/2012 documented as of this encounter (statuses as of 01/09/2024) Medications Medication Sig Dispensed Refills Start Date End Date Status cetirizine (ZYRTEC) 10 MG TabletIndications :Allergic dermatitis Take 1 Tablet by mouth in the morning. 30 Tab 07/17/2016 Active Aspirin-Acetamino phen-Caffeine 250-250-65 MG Oral Tablet 2 Tablets every [...] a day as needed for Heartburn. Active valACYclovir HCl 1 GM Oral Tablet (Valtrex) Take 2 Tablets by mouth in the morning and 2 Tablets before bedtime. For 1 day for cold sores. 4 Tablet 11 02/21/2023 Active Celecoxib 100 MG Oral Capsule (CeleBREX)Indicat ions:Costochondri tis Take 1 Capsule by mouth in the [...] Active busPIRone HCl 10 MG Oral Tablet (Buspar)Indicatio ns:Anxiety TAKE 1 TABLET BY MOUTH TWICE A DAY 180 Tablet 1 11/14/2023 Active Chlorhexidine Gluconate 0.12 % Mouth/Throat Solution (Periogard)Indica tions:Dental infection Swish and spit 15 mL in the morning and 15 mL before bedtime. 473 mL 11/17/2023 Active Additional Information Patient not taking.Reported on 12/06/2023 Omeprazole 40 MG Oral Capsule Delayed Release (PriLOSEC)Indicat ions:Gastroesopha geal reflux disease without esophagitis Take 1 Capsule by mouth in the morning. 1 hour before the first meal of the day. 90 Capsule 1 12/06/2023 Active Losartan Potassium 50 MG Oral Tablet (Cozaar)Indicatio ns:HTN, goal below 140/90 Take 1 Tablet by mouth in the morning. 90 Tablet 1 12/06/2023 Active Montelukast Sodium 10 MG Oral Tablet (Singulair) Take 1 Tablet by mouth daily. 90 Tablet 2 01/09/2024 Active Montelukast Sodium 10 MG Oral Tablet (Singulair) TAKE 1 TABLET BY MOUTH EVERY DAY IN THE MORNING 90 Tablet 2 12/11/2022 Discontinue d(Refill) documented as of this encounter (statuses as of 01/09/2024) Active Problems Problem Noted Date Diagnosed Date [...] 02/16/2016 Renal cyst, acquired, left 09/25/2012 Overview: 09/14-7 mm simple cyst left upper pole. Otherwise unremarkable renal ultrasound. Intermittent asthma with reliever use up to twic e per week 07/26/2010 H/O gastroesophageal reflux (GERD) 01/21/2009 Overview: ugi--09/26/12--VERY SM [facility] HH. 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 h/o DIVERTICULITIS OF COLON 06/18/2007 06/28/2016 Overview: Apr 19, 2006:csope:Dr.Haight Bobo rabago; diverticulosis of the sigmoid colon. Previous end to end colo-colonic anastamosis of the sigmoid colon. [id number] colectomy DIARRHEA SP cholecystectomy 06/18/2007 06/28/2016 Dyspnea and respiratory abnormality 06/18/2007 06/28/2016 Overview: Tonsillar Enl Rt >>lt ICD-10 update of inactive term Hypertrophy of breast 06/26/20032007 Chest pain 03/25/2001 06/18/2007 Headache 03/25/2001 06/18/2007 Overview: ICD-10 update of inactive term Asthma, allergic 08/26/2009 Overview: Advair 100/50, maxair prn, claritin-d - Tear of cartilage or meniscu s of knee, current 09/06/2017 Overview: Right knee surgery to repair torn meniscus in Mar documented as of this encounter (statuses as of 01/09/2024) Immunizations Name Administration Dates Next Due PPD [...] on file documented as of this encounter Miscellaneous Notes * Telephone Encounter - Sheri Chávez MD - 01/09/2024 8:57 AM EST Signed Prescriptions: Disp Refills Montelukast Sodium 10 MG Oral Tablet (Sing*90 Tab*2 Sig: Take 1 Tablet by mouth daily.Authorizing Provider: SHERI CHÁVEZ * Telephone Encounter - Berny Bolanos LPN - 01/09/2024 8:46 AM EST Did you pend patient's preferred pharmacy and medication before forwarding?yes Pharmacy: [id number] [address] [facility] Pending Prescriptions: Disp Refills Montelukast Sodium 10 MG Oral Tablet (Sin*90 Tab*2 Sig: Take 1 Tablet by mouth daily. Last Visit: 12/06/2023 (in office), Visit date not found (telemedicine) Next Visit: Visit date not found If no future appointments scheduled, and last appointment is greater than a year ago, please schedule patient for a follow-up appointment Last date the medication was ordered: 12/11/2022 Is this request for a controlled substance?No Urine Drug Screen: Results for orders placed or performed in visit on 01/22/20 OPIOIDS/BENZO COMPLIANCE MONITORING W/INTERP Result Value COMPLIANCE INTERP (NOTE) URINE DRUG SCREEN RESULT Amphetamine NEGATIVE Benzodiazepines NEGATIVE Cannabinoids NEGATIVE Cocaine Metabolite NEGATIVE HYDROCODONE NEGATIVE METHADONE METABOLITE NEGATIVE Morphine / Codeine NEGATIVE OXYCODONE NEGATIVE COMMENT THE ABOVE SCREENING RESULTS ARE PRESUMPTIVE AND CAN ONLY BE USED FOR MEDICAL PURPOSES. CONFIRMATORY TESTING IS AVAILABLE UPON REQUEST. Cutoff Concentration URINE VALID INTERP NORMAL CREATININE SMITA 55 *Note: Due to a large number of results and/or encounters for the requested time period, some results have not been displayed. A complete set of results can be found in Results Review. Patient Phone Numbers Labs: Lab Results Component Value Date/Time CREAT 0.88 11/28/2023 12:00 AM CREAT 0.8 01/22/2020 10:47 AM POTASSIUM 4.0 11/28/2023 12:00 AM POTASSIUM 4.3 01/22/2020 10:47 AM TSH 1.90 06/21/2022 11:02 AM TSH 2.71 03/11/2018 11:38 AM LDL 127 08/21/2023 12:26 PM LDL 109 02/10/2016 09:20 AM LDL NOT APPLICABLE 02/10/2016 09:20 AM ALT 22 08/21/2023 12:26 PM ALT 29 01/22/2020 10:47 AM documented in this encounter Plan of Treatment Upcoming Encounters Date Type Department Care Team (Late st Contact Info) Description 04/03/2024 11:00 AM EST Appointment Cardiac Studies, [facility] [address] [address] 04/10/2024 10:00 AM EST Office Visit Cardiology, [place] [address] [place] [address] Audi Siu DO [address] [place] [address] Scheduled Procedures Name Priority Associated Diagnoses Date/Ti [...] 11/11/2020, 01/30/2020, 04/16/2019, Additional history exists GFR 11/27/2024 11/28/2023, 08/03, 04/13/2022, Additional history exists Albumin/Creatinine Ratio 06/21/2025 06/21/2022 Diabetes Screening 11/27/2026 11/28/2023, 0 08/21/2023, 04/13/2022, Additional history exists DTap/Tdap Vaccines (7 - Td or Tdap) 11/09/2027 11/08/2017, 06/18/2007, 01/09/1997, Additional history exists Lipid Panel 08/20/2028 08/21/2023, 10/2015, 02/05/2015, Additional history exists Colonoscopy 09/24/2028 09/24/2018, 09/24/2018 Colorectal Cancer Screening 09/24/2028 HPV (Gardasil) Vaccine Aged Out No lo nger eligible based on patient's age to complete this topic MENINGOCOCCAL (MENACTRA/MENVEO) Aged Out No longer eligible based on patient's age to complete this topic documented as of this encounter Medical Devices Not on filedocumented as of this encounter Visit Diagnoses Diagnosis Allergic rhinitis, unspecified seasonality, unspecified trigger- Primary Intermittent asthma with reliever use up to twice per week without complication documented in this encounter Advance Directives * [...]
--- OUTSIDE RECORDS SUMMARY | 2024-01-17 14:10 | External Medical Summary | Summary of Care ---
Author Name Unknown Organization [facility] Address [address] [facility] [place] [address] Phone [phone] Care Team Providers Care Fiber Optic Technician Name Role Phone Unavailable Primary Care Provider Unavailabl e Reason for Visit * Reason Onset Date Comments Advice 12/17/2023 Encounter Details Date Type Department Care Team (Late st Contact Info) Description 12/17/2023 Telephone [facility] [address] [facility] [place] [phone] Yeimy Chávez MD [address] 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 h/o DIVERTICULITIS OF COLON 06/18/2007 06/28/2016 Overview: Apr 19, 2006:csope:Dr.Haight Bobo rabago; diverticulosis of the sigmoid colon. Previous end to end colo-colonic anastamosis of the sigmoid colon. [id number] colectomy DIARRHEA SP cholecystectomy 06/18/2007 06/28/2016 Dyspnea [...] encounter Miscellaneous Notes * Telephone Encounter - Berny Bolanos LPN - 12/17/2023 5:23 PM EDT Patient has been informed of below message and verbalized understanding. * Telephone Encounter - Yeimy Chávez MD - 12/17/2023 2:06 PM EDT As long as patient does not have acute moderate to severe illness, she can have Shingles vaccine * Telephone Encounter - Berny Bolanos LPN - 12/17/2023 11:27 AM EDT Please advise on below message. * Telephone Encounter - Sheri Mckinnon OSA - 12/17/2023 10:56 AM EDT Pt wondering if she can have the Shingles shot any time or must she wait until after her knee surgery Please advise [phone] documented in this encounter Plan of Treatment Upcoming Encounters Date Type Department Care Team (Late st Contact Info) Description 04/03/2024 11:00 AM EST Appointment Cardiac Studies, [facility] [address] [place] [address] 04/10/2024 10:00 AM EST Office Visit Cardiology, [place] [address] [place] [address] Audi Siu DO [address] [address] Scheduled Procedures Name Priority Associated Diagnoses Date/Ti [...] 05/17/2017, Additional history exists COVID-19 Vaccine ( season) 2023 Influenza Vaccine (FLU shot) (#1) 2023 11/11/2020, 01/30/2020, 04/16/2019, Additional history exists GFR 11/27/2024 11/28/2023, 08/03, 04/13/2022, Additional history exists Albumin/Creatinine Ratio 06/21/2025 06/21/2022 Diabetes Screening 11/27/2026 11/28/2023, 0 08/21/2023, 04/13/2022, Additional history exists DTap/Tdap Vaccines (7 - Td or Tdap) 11/09/2027 11/08/2017, 06/18/2007, 01/09/1997, Additional history exists Lipid Panel 08/20/2028 08/21/2023, 12/0 10/2015, 02/05/2015, Additional history exists Colonoscopy 09/24/2028 09/24/2018, 09/24/2018 Colorectal Cancer Screening 09/24/2028 HPV (Gardasil) Vaccine Aged Out No lo nger eligible based on patient's age to complete this topic MENINGOCOCCAL (MENACTRA/MENVEO) Aged Out No longer eligible based on patient's age to complete this topic documented as of this encounter Medical Devices Not on filedocumented as of this encounter Advance Directives * Full Code [...]
--- OUTSIDE RECORDS SUMMARY | 2024-01-17 14:10 | External Medical Summary | Summary of Care ---
Author Name Unknown Organization [facility] Address [address] [facility] [place] [address] Phone [phone] Care Team Providers Care Pathology Secretary Name Role Phone Sunita Duvall Primary Care Provider [phone] Encounter Details Date Type Department Care Team (Late st Contact Info) Description 11/28/2023 Result Scan Unspecified Department <No scans attached> Allergies Active Allergy Reactions Criticality Noted Date Comments Codeine Itching,Rash 07/20/2010 Hydrocodone 04/01/2010 Latex Other (Please comment) Medium 01/17/2012 Pt unsure of reaction. Morphine 03/10/2004 "Skin crawling" sensation Oxycodone 04/01/2010 Oxycodone Hcl Itching,Rash 07/22/2010 Oxycodone-Acetaminophe n Itching 07/21/2010 Tramadol Itching,Rash 07/22/2010 Hydrocodone-Acetaminop hen Itching,Rash 04/24/2012 documented as of this encounter (statuses as of 12/10/2023) Medications Medication Sig Dispensed Refills Start Date [...] Additional Information Patient not taking.Reported on 12/06/2023 documented as of this encounter (statuses as of 12/10/2023) Active Problems Problem Noted Date Diagnosed Date [...] 1 mth Overweight (BMI 25.0-29.9) 06/18/2007 Overview: [id number]--ycc cbc, bmp, lft ,lipids,ua triple phos bernadette [...] as of this encounter (statuses as of 12/10/2023) Resolved Problems Problem Noted Date Diagnosed Date [...] cervix 06/18/2007 06/28/2016 Overview: Pap fb gYN_-neg 03/2006/19/2007--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 h/o DIVERTICULITIS OF COLON 06/18/2007 06/28/2016 Overview: Apr 19, 2006:csope:Dr.Haight Bobo rabago; diverticulosis of the sigmoid colon. Previous end to end colo-colonic anastamosis of the sigmoid colon. [id number] colectomy DIARRHEA SP cholecystectomy 06/18/2007 06/28/2016 Dyspnea and respiratory abnormality 06/18/2007 06/28/2016 Overview: Tonsillar Enl Rt >>lt ICD-10 update of inactive term Hypertrophy of breast 06/26/20032007 Chest pain 03/25/2001 06/18/2007 Headache 03/25/2001 06/18/2007 Overview: ICD-10 update of inactive term Asthma, allergic 08/26/2009 Overview: Advair 100/50, maxair prn, fozia Lloyd Tear of cartilage or meniscu s of knee, current 09/06/2017 Overview: Right knee surgery to repair torn meniscus in Mar documented as of this encounter (statuses as of 12/10/2023) Immunizations Name Administration Dates Next Due PPD [...] No 08/31/2022 Does the household have a [facility] source [facility] income? (Household - for ages [...] on file documented as of this encounter Plan of Treatment Upcoming Encounters Date Type Department Care Team (Late st Contact Info) Description 03/17/2024 10:00 AM EST Office Visit [facility] [address] [place] [address] Audi Siu DO [address] [place] [address] Scheduled Procedures Name Priority Associated Diagnoses Date/Ti [...] 04/16/2019, Additional history exists GFR 08/20/2024 08/21/2023, 0 11/2022, 01/22/2020, Additional history exists Albumin/Creatinine Ratio 06/21/2025 06/21/2022 Diabetes Screening 08/20/2026 08/21/2023, 0 04/13/2022, 01/22/2020, Additional history exists DTap/Tdap Vaccines (7 - Td or Tdap) 11/09/2027 11/08/2017, 06/18/2007, 01/09/1997, Additional history exists Lipid Panel 08/20/2028 08/21/2023, 120 10/2015, 02/05/2015, Additional history exists Colonoscopy 09/24/2028 09/24/2018, 09/24/2018 Colorectal Cancer Screening 09/24/2028 HPV (Gardasil) Vaccine Aged Out No lo nger eligible based on patient's age to complete this topic MENINGOCOCCAL (MENACTRA/MENVEO) Aged Out No longer eligible based on patient's age to complete this topic documented as of this encounter Medical Devices Not on filedocumented as of this encounter Procedures Procedure Name Priority Date/Time Associated Diagnosis Comments EKG SCANNED RESULT 11/28/2023 documented in this encounter Results * EKG SCANNED RESULT (11/28/2023) 11/28/2023 No Physician Data Unknown EKG documented in this encounter Advance Directives * [...] Power of Attor cornelius? No Care Teams Pathology Secretary Relationship Specialty Start Date End Date Sunita Duvall CRNP [address] [place] [address] PCP - General Nurse Practitioner 04/13/22 documented as of this encounter
--- OUTSIDE RECORDS SUMMARY | 2024-01-17 14:10 | External Medical Summary | Summary of Care ---
Author Name Unknown Organization [facility] Address [address] [facility] [place] [address] Phone [phone] Care Team Providers Care Bead Cutter Name Role Phone Unavailable Primary Care Provider Unavailabl e Encounter Details Date Type Department Care Team (Late st Contact Info) Description 12/17/2023 Orders Only [facility], [place] [address] [facility] [place] [address] Yeimy Chávez MD [address] [place] [address] Allergies Active Allergy Reactions Criticality Noted Date [...] 1 mth Overweight (BMI 25.0-29.9) 06/18/2007 Overview: Fmxv53--jcu cbc, bmp, lft ,lipids,ua triple phos bernadette [...] cervix 06/18/2007 06/28/2016 Overview: Pap fb gYN_-neg 03/2006/19/2007--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 h/o DIVERTICULITIS OF COLON 06/18/2007 06/28/2016 Overview: Apr 19, 2006:csope:Dr.Haight Bobo rabago; diverticulosis of the sigmoid colon. Previous end to end colo-colonic anastamosis of the sigmoid colon. [id number] colectomy DIARRHEA SP cholecystectomy 06/18/2007 06/28/2016 Dyspnea and respiratory abnormality 06/18/2007 06/28/2016 Overview: Tonsillar Enl Rt >>lt ICD-10 update of inactive term Hypertrophy of breast 06/26/20032007 Chest pain 03/25/2001 06/18/2007 Headache 03/25/2001 06/18/2007 Overview: ICD-10 update of inactive term Asthma, allergic 08/26/2009 Overview: Advair 100/50, maxair prn, candiceitin-d - Tear of cartilage or meniscu s [...] Cardiac Studies, [facility] [address] [place] [address] 04/10/2024 10:00 AM EST Office Visit Cardiology, [place] [address] [place] [address] Audi Siu, [address] [place] [address] Scheduled Procedures Name Priority Associated Diagnoses Date/Ti [...] 01/30/2020, 04/16/2019, Additional history exists GFR 08/20/2024 11/28/2023, 08/03, 04/13/2022, Additional history exists Albumin/Creatinine Ratio 06/21/2025 06/21/2022 Diabetes Screening 08/20/2026 11/28/2023, 0 08/21/2023, 04/13/2022, Additional history exists [...] Procedure Name Priority Date/Time Associated Diagnosis Comments CHEMISTRY-OUTSIDE Routine 11/28/2023 documented in this encounter Results * (ABNORMAL) CHEMISTRY-OUTSIDE (11/28/2023) Not all results display below - see scan for full detail OUTSIDE LAB (SEE SCANNED REPORT) Comment:SCAN INCL: PRE OP: C BCD,PT, INR, PTTR, UA,CMP, TYPE/SCR CREATININE 0.88 0.6 - 1.2 MG/DL OUTSIDE LAB (SEE SCANNED REPORT) EGFR 73.4 OUTSIDE LA B (SEE SCANNED REPORT) POTASSIUM 4.0 3.5 - 5.1 MMOL/L OUTSIDE LAB (SEE SCANNED REPORT) GLUCOSE 126(A) 70 - 99 MG/DL OUTSIDE LAB (SEE SCANNED REPORT) HOURS FASTING OUTSID E LAB (SEE SCANNED REPORT) TRIGLYCERIDES-OUT SIDE LAB OUTSIDE LAB (SEE SCANNED REPORT) CHOLESTEROL-OUTSI DE LAB OUTSIDE LAB (SEE SCANNED REPORT) HDL-OUTSIDE LAB OUTS CAMPOS LAB (SEE SCANNED REPORT) CHOL/HDL RATIO-OUTSIDE LAB OUTSIDE LA B (SEE SCANNED REPORT) LDL (CALCULATED)-OUTS CAMPOS LAB OUTSIDE LAB (SEE SCANNED REPORT) LDL (DIRECT MEASURE)-OUTSIDE LAB OUTSIDE LAB (SEE SCANNED REPORT) HEMOGLOBIN, [id number] LAB OUTSIDE LAB (SEE SCANNED REPORT) PHOSPHORUS-OUTSID E LAB OUTSIDE LAB (SEE SCANNED REPORT) PTH-OUTSIDE LAB OUTS CAMPOS LAB (SEE SCANNED REPORT) MICROALBUMIN RATIO-OUTSIDE LAB OUTSIDE LA B (SEE SCANNED REPORT) PROTEIN, UA-OUTSIDE LAB OUTSIDE LAB (SEE SCANNED REPORT) HGB 14.2 12.0 - 16.0 G/DL OUTSIDE LAB (SEE SCANNED REPORT) 11/28/2023 History Per Patient LABORATORY OUTSIDE LAB (SEE SCANNED REPORT) documented in this encounter Advance Directives * [...]
--- OUTSIDE RECORDS SUMMARY | 2024-01-17 14:10 | External Medical Summary | Summary of Care ---
Author Name Unknown Organization [facility] Address [address] [place] [address] Phone [phone] Care Team Providers Care No Experience Name Role Phone Sunita Duvall Primary Care Provider Natalia vailable Reason for Referral * Precert (Diagnostic Medical) (Within 10 days (routine)) - Authorized Specialty Diagnoses / Procedures Referred By Contac t Referred To Contact Cardiac Studies Diagnoses Aneurysm of ascending aorta without rupture (HCC) Procedures ECHO, COMPLETE (2D), TRANS-THORACIC Sheri Lee CRNP [address] [place] [id number] Referral ID Status Reason Start Date Expiration Date V isits Requested Visits Authorized [id number] Authorized Precert 12/16/2023 999 999 Reason for Visit * Reason Onset Date Comments Referral 12/10/2023 Encounter Details Date Type Department Care Team (Late st Contact Info) Description 12/10/2023 New Patient 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 h/o DIVERTICULITIS OF COLON 06/18/2007 06/28/2016 Overview: Apr 19, 2006:csope:Dr.Haight Bobo rabago; diverticulosis of the sigmoid colon. Previous end to end colo-colonic anastamosis of the sigmoid colon. [id number] colectomy DIARRHEA SP cholecystectomy 06/18/2007 06/28/2016 Dyspnea [...] 12/17/2023) Immunizations Name Administration Dates Next Due DTaP Dipth/Tet/Acell Pertussis (Infanrix), Peds 08/21/1972,1967,1967,07/23 MMR - Measles/Mumps/Rubella Vaccine 10/05/1972,0 08/21/1972 OPV - Polio Virus Vaccine (Oral) 08/21/1972,10/05,1967 PPD 05/18/2005,05/20/2003,05/22/2002 Pneumococcal Polysaccharide PPV23 (Pneumovax) 09/16/2015,06/25/2013(Deferred: Patient Refused) Seasonal Influenza Vac., MDV , IM, 0.5 mL (Fluzone) 01/17/2012,12/29/2010(Deferred: Patient Refused) Seasonal Influenza, PF, 6 M & above, IM , (FluLaval or Fluzone) 11/11/2020,01/30/2020,04/16/2019,03/11,01/15/2017 Seasonal Influenza, Quadriva lent, No Preserve, IM 12/13/2015,04/23/2015 TD - Tetanus/Diptheria (ADULT) 01/09/1997 TD, Preservative Free 11/08/2017 TDAP, Age 9 [...] No 08/31/2022 Does the household have a [facility] source [facility] income? (Household [...] Notes * Beatriz Taylor OSA - 12/17/2023 2:12 PM EDT ECHO 04/03/24 11:00am; appt 04/10/24 at 10:00am * Beatriz Taylor OSA - 12/17/2023 10:18 AM EDT Appt with Dr. Siu on 03/17/24 was canceled and needs rescheduled as well. Attempted to contact pt,LMOM for pt to schedule * Sheri Lee CRNP - 12/15/2023 5:57 AM EDT Does patient need to be seen?: Yes Modality: Office visit Urgency: Within 30 days (routine) Discussed care plan with patient or proxy?: Yes MyChart Communicated with patient on Date (mm/dd/yyyy): 12/10/2023 at Time ([facility]): 1444 58 year old female referred [...] Appropriate referral. Thank you, TEJINDER Kirby Cardiology [facility] * Vivian Melgar LPN - 12/10/2023 2:44 PM EDT Images from the original note were not included. New Patient Triage What is the diagnosis/reason for referral?: Aneurysm of ascending aorta without rupture (HCC) [I71.21] - Primary Enter order ID here: [id number] Specialty specific documentation: Other Ask A doc done by Dr Montemayor Pt previous estab pt with our clinic, lost to follow up. PCP & Dr Montemayor recommending she re-estab to follow AAA. Discussed care plan with patient or proxy?: Yes myg msg to pt Communicated with patient on Date (mm/dd/yyyy): 12/09 at Time ([facility]): 1500 APPOINTMENT INFO: 03/17/24 Dr Siu [...] mouth in the morning. 30 Tab 0 Byhdgdo-Hvnckdlrvqekz-Hihwnmqt 250-250-65 MG Oral Tablet 2 Tablets every [...] 04/03/2024 11:00 AM EST Appointment Card[facility] Studies, [facility] [address] [place] [address] 04/10/2024 10:00 AM EST Office Visit Cardiology, [place] [address] [place] [address] Audi Siu DO [address] [place] [address] Scheduled Orders Name Type Priority Associated Diagnoses [...] Power of Attor cornelius? No Care Teams No Experience Relationship Specialty Start Date End Date Sunita Duvall CRNP PCP - General Nurse Practitioner 04/13/22 12/10/23 documented as of this encounter
--- OUTSIDE RECORDS SUMMARY | 2024-01-17 14:11 | External Medical Summary | Summary of Care ---
Author Name Unknown Organization [facility] Address [address] [facility] [place] [address] Phone [phone] Care Team Providers Care Hazardous Substances Scientist Name Role Phone Sunita Duvall Primary Care Provider [phone] Reason for Visit * Reason Comments pre-op exam TKR-left Dr. Henao Encounter Details Date Type Department Care Team (Late st Contact Info) Description 12/06/2023 10:40 AM EDT Office Visit [facility] [address] [facility] [place] [address] Yeimy Chávez MD [address] [facility] [address] Preoperative clearance*; Osteoarthritis of left knee, unspecified osteoarthritis type; Intermittent asthma with reliever use up to twice per week without complication; Gastroesophageal reflux disease without esophagitis; Fibromyalgia; Major depressive disorder, single episode, moderate (HCC); BENIGN HYPERTENSION; Aneurysm of ascending aorta without rupture (HCC); BMI 30.0-30.9,adult; Obstructive sleep apnea of adult Allergies Active Allergy Reactions Criticality Noted Date Comments Codeine Itching,Rash 07/20/2010 Hydrocodone 04/01/2010 Latex Other (Please comment) Medium 01/17/2012 Pt unsure of reaction. Morphine 03/10/2004 "Skin crawling" sensation Oxycodone 04/01/2010 Oxycodone Hcl Itching,Rash 07/22/2010 Oxycodone-Acetaminophe n Itching 07/21/2010 Tramadol Itching,Rash 07/22/2010 Hydrocodone-Acetaminop hen Itching,Rash 04/24/2012 documented as of this encounter (statuses as of 12/06/2023) Medications Medication Sig Dispensed Refills Start Date [...] up to 14 days. 22 g 12/06/2023 Active Patterson-3 Fatty Acids (OMEGA-3 FISH OIL) 300 MG CAPS Take 300 mg by mouth in the morning. Discontinue d(Medicatio n List Clean Up) Omeprazole 20 MG Oral Capsule Delayed Release (PriLOSEC) Take 1 Capsule by mouth in the morning. Discontinue d(Medicatio n/Dose Changed) Losartan Potassium 25 MG Oral Tablet (Cozaar) TAKE 1 TABLET BY MOUTH EVERY DAY IN THE MORNING 90 Tablet 2 11/17/2023 4 Discontinue d(Medicatio n/Dose Changed) documented as of this encounter (statuses as of 12/06/2023) Active Problems Problem Noted Date Diagnosed Date [...] 1 mth Overweight (BMI 25.0-29.9) 06/18/2007 Overview: Uoye69--mxo cbc, bmp, lft ,lipids,ua triple phos bernadette [...] as of this encounter (statuses as of 12/06/2023) Resolved Problems Problem Noted Date Diagnosed Date [...] for diabetes mellitus 04/23/2015 06/28/2016 Overview: Nl 12 with tsh,bmp Carpal tunnel syndrome 08/07/201409/06 Overview: [...] cervix 06/18/2007 06/28/2016 Overview: 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 h/o DIVERTICULITIS OF COLON 06/18/2007 06/28/2016 Overview: Apr 19, 2006:csope:Dr.Haight Bobo rabago; diverticulosis of the sigmoid colon. Previous end to end colo-colonic anastamosis of the sigmoid colon. [id number] colectomy DIARRHEA SP cholecystectomy 06/18/2007 06/28/2016 Dyspnea and respiratory abnormality 06/18/2007 06/28/2016 Overview: Tonsillar Enl Rt >>lt ICD-10 update of inactive term Hypertrophy of breast 06/26/20032007 Chest pain 03/25/2001 06/18/2007 Headache 03/25/2001 06/18/2007 Overview: ICD-10 update of inactive term Asthma, allergic 08/26/2009 Overview: Josie 100/50, fozia escobar Tear of cartilage or meniscu s of knee, current 09/06/2017 Overview: Right knee surgery to repair torn meniscus in Mar documented as of this encounter (statuses as of 12/06/2023) Immunizations Name Administration Dates Next Due PPD [...] Date Smoking Tobacco: Never Smokeless Tobacco: Never Tobacco Cessation:Counseling Given: Not Answered Comments:no passive smoke Alcohol Use Standard Drinks/Week [...] No 08/31/2022 Does the household have a [facility] source of income? (Household - for ages [...] on file documented as of this encounter Last Filed Vital Signs Vital Sign Reading Time Taken Comments Blood Pressure 130/100 12/06/2023 10:52 AM EDT ma nually Pulse 64 12/06/2023 10:48 AM EDT Temperature 35.9 C (96.6 F) 12/06/2023 10:48 AM E DT Respiratory Rate 12 12/06/2023 10:48 AM EDT Oxygen Saturation 98% 12/06/2023 10:48 AM EDT Inhaled Oxygen Concentration - - Weight 81 kg (178 lb 8 oz) 12/06/2023 10:48 AM E DT Height - - Body Mass Index 30.64 11/17/2023 12:10 PM EDT documented in this encounter Progress Notes * Yeimy Chávez MD - 12/06/2023 11:00 AM EDT Images from the original note were not included. Pre-Operative Medical Evaluation Procedure Information Type of Surgery: left total knee replacement Referring Physician / Surgeon: orthopaedic Date of procedure: 12/26/2023 Brief History of Present Illness: Patient feels ok today. Review of Systems Constitutional: Negative for activity change, appetite change, chills, fatigue, fever and unexpected weight change. HENT: Negative for congestion, dental problem, ear pain, hearing loss, rhinorrhea, sore throat andtrouble swallowing. Eyes: Negative for visual disturbance. Respiratory: Negative for cough, shortness of breath and wheezing. Cardiovascular: Negative for chest pain, palpitations and leg swelling. Gastrointestinal: Negative for abdominal pain, blood in stool, constipation, diarrhea, nausea and vomiting. Genitourinary: Negative for difficulty urinating, dysuria and hematuria. Musculoskeletal: Positive for arthralgias, gait problem and joint swelling. Skin: Negative for rash. Neurological: Negative for dizziness and headaches. Hematological: Negative for adenopathy. Psychiatric/Behavioral: Negative for dysphoric mood and sleep disturbance. The patient is not nervous/anxious. Medical History Problem List: Gastroesophageal reflux disease (02/10/2021) Hiatal hernia (02/10/2021) DDD (degenerative disc disease), cervical (09/09/2020) Acute tear medial meniscus, left, subsequent encounter (12/30/2018) Chronic pain of left knee (12/02/2018) Internal derangement of knee joint, left (12/02/2018) Primary osteoarthritis of knees, bilateral (12/02/2018) Chronic fatigue (03/11/2018) Ascending aortic aneurysm (HCC) (04/16/2017) Generalized osteoarthritis of multiple sites (03/30/2016) Fibromyalgia (03/30/2016) Rash and nonspecific skin eruption (03/29/2016) Mixed rhinitis (02/16/2016) Seasonal and perennial allergic rhinitis (08/23/2015) Abnormal finding on imaging (04/29/2015) Lipid screening (04/23/2015) Screening for diabetes mellitus (04/23/2015) Carpal tunnel syndrome (08/07/2014) Advance directive discussed with patient (02/27/2014) Other chest pain (11/07/2012) Snoring (10/31/2012) Renal cyst, acquired, left (09/25/2012) Joint pain, knee (10/10/2010) UNSPECIFIED ABNORMAL MAMMOGRAM- FOCAL ASYMMETRY LEFT BREAST (2010) Backache (08/17/2010) Intermittent asthma with reliever use up to twice per week (2010) Enthesopathy of knee (03/17/2010) Asthma with severity to be determined (08/26/2009) H/O gastroesophageal reflux (GERD) (01/21/2009) Screening for malignant neoplasm of cervix (06/18/2007) Screening for malignant neoplasm of breast (06/18/2007) h/o DIVERTICULITIS OF COLON (06/18/2007) Overweight (BMI 25.0-29.9) (06/18/2007) Allergic rhinitis (06/18/2007) Female stress incontinence (06/18/2007) DIARRHEA SP cholecystectomy (06/18/2007) Dyspnea and respiratory abnormality (06/18/2007) Major depressive disorder, single episode, moderate (HCC) (03/29/2007) Agoraphobia without history of panic disorder (03/29/2007) Migraine without aura (07/01/2003) Hypertrophy of breast (06/26/2003) Chest pain (03/25/2001) Headache (03/25/2001) BENIGN HYPERTENSION Asthma, allergic Tear of cartilage or meniscus of knee, current Current Medications Losartan Potassium 25 MG Oral Tablet (Cozaar), TAKE 1 TABLET BY MOUTH EVERY DAY IN THE MORNING busPIRone HCl 10 MG Oral Tablet (Buspar), TAKE 1 TABLET BY MOUTH TWICE A DAY Pregabalin 50 MG Oral Capsule (Lyrica), TAKE 1 CAPSULE BY MOUTH IN THE MORNING, 1 CAPSULE AT NOON AND 1 CAPSULE BEFORE BEDTIME. buPROPion HCl ER (XL) 150 MG Oral Tablet Extended Release 24 Hour (Wellbutrin XL), TAKE 1 TABLET BYMOUTH EVERY DAY IN THE MORNING Celecoxib 100 MG Oral Capsule (CeleBREX), 100 mg, Oral, Daily(AM) Montelukast Sodium 10 MG Oral Tablet (Singulair), TAKE 1 TABLET BY MOUTH EVERY DAY IN THE MORNING Ciclopirox 8 % External Solution, Apply over nail and surrounding skin. Apply daily over previous coat. After seven (7) days, may remove with alcohol and continue cycle. Omeprazole 20 MG Oral Capsule Delayed Release (PriLOSEC), 20 mg, Oral, Daily(AM) cetirizine (ZYRTEC) 10 MG Tablet, 10 mg, Oral, Daily(AM) Chlorhexidine Gluconate 0.12 % Mouth/Throat Solution (Periogard), 15 mL, Swish & Spit, BID(AM/PM) (Patient not taking: Reported on 12/06/2023) valACYclovir HCl 1 GM Oral Tablet (Valtrex), 2,000 mg, Oral, Q12H Famotidine 10 MG Oral Tablet (Pepcid), 10 mg, Oral, BID PRN Ketoconazole 2 % External Cream, Apply to bilateral feet twice daily for 2 weeks and then as needed Magnesium 100 MG Oral Capsule, 100 mg, Oral, Daily(AM) (Patient not taking: Reported on 12/06/2023) Patterson-3 Fatty Acids (OMEGA-3 FISH OIL) 300 MG CAPS, 300 mg, Oral, Daily(AM) (Patient not taking: Reported on 12/06/2023) Xhzncnx-Infurvkuwtrgn-Jvrzntkn 250-250-65 MG Oral Tablet, 2 Tablet, Q8H PRN Allergies: Latex, Codeine, Hydrocodone, Morphine, Oxycodone, Oxycodone hcl, Percocet [oxycodone-acetaminophen], Tramadol, and Vicodin [hydrocodone-acetaminophen] Past Medical History: has a past medical history of Acute tonsillitis (06/28/99), Agoraphobia without history of panic disorder (03/29/2007), Allergic rhinitis (06/18/2007), Ascending aortic aneurysm ([facility]), Asthma, Cervicitis, COMMON MIGRAINE, NOT INTRACTABLE(aka MIGRAINE) (07/01/2003), DIARRHEA SP cholecystectomy (06/18/2007), Diverticulitis of colon (06/18/2007), Dysfunctional Uterine Bleeding (2008), Esophageal reflux (01/21/2009), Fibromyalgia (03/30/2016), Generalized osteoarthritis of multiple sites (03/30/2016), Major depressive disorder, single episode, moderate (HCC) (03/29/2007), Other anxiety states, Renal cyst,acquired, left (09/25/2012), Tear of cartilage or meniscus of knee, current, and Tendonitis-Shoulder. Past Surgical History: has a past surgical history that includes remove gallbladder (1994?); anesthesia for knee joint procedure (Right, 1981); information (07/2003); lasik/prk surgery (11/2006); colonoscopy (); knee arthroscopy/meniscectomy (Right, 03/30/2010); carpal tunnel surgery (Right, 2000, 09/15/2014); ligate/cut oviduct(s) (Bilateral, 2008); endometrial cryoablation us guided (2011); partial removal of colon (12/16/2003); Laparoscopy Diagnostic (N/A, 05/09/2018); Colonoscopy, Diagnostic (Rectum) (N/A, 09/24/2018); EGD, Flexible, Diagnostic (N/A, 09/24/2018); knee arthroscopy/meniscectomy (Left, 01/27/2019); Sacroiliac Joint Inject w/Guidance (Left, 10/03/2019); reduction of breast (Bilateral); tendonsheath incision, finger (Right, 10/08/2020); and EGD, Flexible, Diagnostic (N/A, 09/01/2022). Social History: reports that she has never smoked. She has never used smokeless tobacco. She reports that she does not drink alcohol and does not use drugs. Family History: family history includes Acne in her daughter; Allergies in her daughter, father, mother, son, and son; Breast Cancer in her aunt (unspecified); Breast Cancer (age of onset: 70) in her mother; Cancer in her aunt (unspecified) and uncle (unspecified); Cancer (age of onset: 50) in her aunt (unspecified); Colon polyps in her mother; Heart Disorder in her grandfather (maternal) and grandfather (paternal); Hypertension in her grandfather (paternal), grandmother (maternal), and mother; Renal Hx in heraunt (unspecified), son, and uncle (unspecified); Stroke in her grandfather (maternal); Thyroid cancer in her mother; acid reflux in her brother and daughter; born with enlarged liver in her brother;hypotension in her father; tumor in head in her mother. Anesthesia History Type of Anesthesia: General Endotracheal Anesthesia reaction: No History of surgical complications: no Personal history of venous thromboembolic disease: no Physical Exam Vitals: 12/06/23 1048 12/06/23 1052 Temp: 35.9 C (96.6 F) Pulse: 64 Resp: 12 SpO2: 98% BP: 151/105 130/100 BMI Readings from Last 3 Encounters: 12/06/23 30.64 kg/m 11/17/23 31.14 kg/m 09/26/23 31.79 kg/m BP Readings from Last 6 Encounters: 12/06/23 130/100 11/17/23 144/84 08/09/23 158/94 07/31/23 152/100 09/01/22 138/98 08/31/22 122/70 Physical Exam Constitutional: General: She is not in acute distress. Appearance: Normal appearance. HENT: Head: Normocephalic and atraumatic. Right Ear: Tympanic membrane, ear canal and external ear normal. Left Ear: Tympanic membrane, ear canal and external ear normal. Nose: Nose normal. Mouth/Throat: Mouth: Mucous membranes are moist. Pharynx: Oropharynx is clear. Eyes: Conjunctiva/sclera: Conjunctivae normal. Pupils: Pupils are equal, round, and reactive to light. Cardiovascular: Rate and Rhythm: Normal rate and regular rhythm. Pulses: Normal pulses. Pulmonary: Effort: Pulmonary effort is normal. Breath sounds: Normal breath sounds. Abdominal: General: Bowel sounds are normal. There is no distension. Palpations: Abdomen is soft. Tenderness: There is no abdominal tenderness. Musculoskeletal: Cervical back: Neck supple. Left knee: Decreased range of motion. Tenderness present. Right lower leg: No edema. Left lower leg: No edema. Comments: OA left knee Skin: General: Skin is warm and dry. Findings: No rash. Neurological: Mental Status: She is alert and oriented to person, place, and time. Gait: Gait abnormal. Comments: Due to left knee pain Psychiatric: Mood and Affect: Mood normal. Behavior: Behavior normal. Labs reviewed and are significant for: Done last week with ortho, records are not available EKG by my review is significant for: EKG done last week with ortho ([facility]) ECHO 04/18/2018 Interpretation Summary The left ventricular endocardium is adequately assessed using ultrasonic contrast. Calculated LV ejection Fraction = 65% (bi-plane method of discs). The left ventricular cavity size is normal. The LV wall thickness is normal. There is no left ventricular mural thrombus. The left ventricular wall motion is normal. Moderately dilated ascending aorta (4.2 cm). No prior studies for comparison. CT chest 09/11/2023 MPRESSION: 1. No acute findings. 2. Dilation ascending aorta up to 4.5 cm, not significantly changed. Surgical Risk Scoring Revised Cardiac Risk Index (RCRI) High-risk type of surgery (examples include vascular and any open intraperitoneal or intrathoracic procedures): 0=No History of ischemic heart disease (history of myocardial infarction or positive exercise test, current compliant of chest pain considered to be secondary to myocardia ischemia, use of nitrate therapy, or ECG with pathological Q waves; do not count prior coronary revascularization procedure unless one of the other criteria for ischemic heart disease is present): 0=No History of heart failure: 0=No History of cerebrovascular disease: 0=No Diabetes mellitus requiring treatment with insulin: 0=No Preoperative serum creatinine >2.0 mg/dL (177 micromol/L): 0=No Pt has revised cardiac index score of: No Risk Factors- 0.4% (95% CI: 0.1-0.8) Screening for Obstructive Sleep Apnea (STOP-BANG) Known CLARIBEL Assessment and Plan 1. Preoperative clearance - patient is cleared for procedure, pending EKG and labs, done at [facility], report is not available at the time of this visit. 2. Osteoarthritis of left knee, unspecified osteoarthritis type - for surgery 3. Intermittent asthma with reliever use up to twice per week without complication - stable, no recent Albuterol use 4. Gastroesophageal reflux disease without esophagitis - Omeprazole 40 MG Oral Capsule Delayed Release (PriLOSEC); Take 1 Capsule by mouth in the morning.1 hour before the first meal of the day. Dispense: 90 Capsule; Refill: 1 (Medication dose increased) 5. Fibromyalgia 6. Major depressive disorder, single episode, moderate (HCC) - stable 7. BENIGN HYPERTENSION - Losartan Potassium 50 MG Oral Tablet (Cozaar); Take 1 Tablet by mouth in the morning. Dispense: 90 Tablet; Refill: 1 (medication dose increased) 8. Aneurysm of ascending aorta without rupture (HCC) - stable, CT chest 09/2023 9. BMI 30.0-30.9,adult 10. Obstructive sleep apnea of adult - patient does not want to use CPAP Functional Assessment They are able to walk up a flight of stairs, do heavy house work like vacuuming, grocery shop, and walk slow due to left knee pain . The patient's functional status is good (greater than 4 METS). 1 MET: 4 METs: 4-10 METs: Can take care of self, such as eat, dress or use the toilet. Can walk to block or go up a flight of steps. Can do heavy house work. Surgical Risk Assessment Patient is low medical risk for the listed procedure. Medication adjustments: Hold NSAIDs one week before surgery Losartan increased Omeprazole increased Additional consults or testing: documented in this encounter Plan of Treatment Scheduled Procedures Name Priority Associated Diagnoses Date/Ti [...] 04/16/2019, Additional history exists GFR 08/20/2024 08/21/2023, 02/0 11/2022, 01/22/2020, Additional history exists Albumin/Creatinine Ratio [...] as of this encounter Visit Diagnoses Diagnosis Preoperative clearance- Primary Preoperative examination, unspecified Osteoarthritis of left knee, unspecified osteoarthritis type Intermittent asthma with reliever use up to twice per week without complication Gastroesophageal reflux disease without esophagitis Esophageal reflux Fibromyalgia Mylagia and myositis, unspecified Major depressive disorder, single episode, moderate (HCC) Major depressive disorder, single episode, moderate BENIGN HYPERTENSION Unspecified essential hypertension Aneurysm of ascending aorta without rupture (HCC) BMI 30.0-30.9,adult Body Mass Index 30.0-30.9, adult Obstructive sleep apnea of adult Obstructive sleep apnea (adult) (pediatric) documented in this encounter Advance Directives * [...] Power of Attor cornelius? No Care Teams Hazardous Substances Scientist Relationship Specialty Start Date End Date Sunita Duvall CRNP [address] [id number] PCP - General Nurse Practitioner 04/13/22 documented as of this encounter
--- OUTSIDE RECORDS SUMMARY | 2024-01-17 14:11 | External Medical Summary | Summary of Care ---
Author Name Unknown Organization [facility] Address [address] [place] [address] Phone [phone] Care Team Providers Care Dobie Man Name Role Phone Sunita Duvall Primary Care Provider [phone] Reason for Visit * Reason Comments pre-op exam TKR-left Dr. Henao Encounter Details Date Type Department Care Team (Late st Contact Info) Description 12/06/2023 10:40 AM EDT Office Visit [facility] [address] [facility] [facility] [place] [address] Sheri Chávez MD [address] [place] [address] Preoperative clearance*; Osteoarthritis of left knee, unspecified osteoarthritis type; Intermittent asthma with reliever use up to twice per week without complication; Gastroesophageal reflux disease without esophagitis; Fibromyalgia; Major depressive disorder, single episode, moderate (HCC); BENIGN HYPERTENSION; Aneurysm of ascending aorta without rupture (HCC); BMI 30.0-30.9,adult; Obstructive sleep apnea of adult; Other abnormal findings in urine Allergies Active Allergy Reactions Criticality Noted Date [...] to 14 days. 22 g 12/06/2023 Active [place]-3 Fatty Acids (OMEGA-3 FISH OIL) 300 MG CAPS Take 300 mg by mouth in the morning. Discontinue d(Medicatio n List Clean Up) Omeprazole 20 MG Oral Capsule Delayed Release (PriLOSEC) Take 1 Capsule by mouth in the morning. 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 h/o DIVERTICULITIS OF COLON 06/18/2007 06/28/2016 Overview: Apr 19, 2006:csope:Dr.Haight oBbo rabago; diverticulosis of the sigmoid colon. Previous end to end colo-colonic anastamosis of the sigmoid colon. [id number] colectomy DIARRHEA SP cholecystectomy 06/18/2007 06/28/2016 Dyspnea and respiratory abnormality 06/18/2007 06/28/2016 Overview: Tonsillar Enl Rt >>lt ICD-10 update of inactive term Hypertrophy of breast 06/26/20032007 Chest pain 03/25/2001 06/18/2007 Headache 03/25/2001 06/18/2007 Overview: ICD-10 update of inactive term Asthma, allergic 08/26/2009 Overview: Josie 100/50, mona naranjon, fozia Lloyd Tear of cartilage or meniscu s of knee, current 09/06/2017 Overview: Right knee surgery to repair torn meniscus in Mar documented as of this encounter (statuses as of 12/06/2023) Immunizations Name Administration Dates Next Due DTaP [...] Pressure 130/100 12/06/2023 10:52 AM EDT ma valery Pulse 64 12/06/2023 10:48 AM EDT Temperature [...] documented in this encounter Progress Notes * Sheri Chávez MD - 12/06/2023 11:00 AM EDT [...] ear pain, hearing loss, rhinorrhea, sore throat and trouble swallowing. Eyes: Negative for visual disturbance. Respiratory: [...] Daily(AM) (Patient not taking: Reported on 12/06/2023) [place]-3 Fatty Acids (OMEGA-3 FISH OIL) 300 MG CAPS, 300 mg, Oral, Daily(AM) (Patient not taking: Reported on 12/06/2023) Llyqhqo-Qreutnyazlknz-Tezelyny 250-250-65 MG Oral Tablet, 2 Tablet, Q8H PRN Allergies: Latex, Codeine, Hydrocodone, Morphine, Oxycodone, Oxycodone hcl, Percocet [oxycodone-acetaminophen], Tramadol, and Vicodin [hydrocodone-acetaminophen] Past Medical History: has a past medical history of Acute tonsillitis (06/28/99), Agoraphobia without history of panic disorder (03/29/2007), Allergic rhinitis (06/18/2007), Ascending aortic aneurysm (HCC), Asthma, Cervicitis, COMMON MIGRAINE, NOT INTRACTABLE(aka MIGRAINE) [...] for: EKG done last week with ortho ([facility]) ECHO 04/18/2018 Interpretation Summary The left ventricular [...] procedure, pending EKG and labs, done at [facility], report is not available at the time of this visit. Addendum: EKG normal sinus rhythm, labs stable (reviewed), microscopic hematuria RBC 3-5, will repeat UA at a later time. 2. Osteoarthritis of left knee, unspecified osteoarthritis [...] consults or testing: documented in this encounter Miscellaneous Notes * Addendum Note - Sheri Chávez MD - 12/06/2023 3:07 PM EDTAddended by: SHERI CHÁVEZ on: 12/06/2023 03:07 PM Modules accepted: Orders documented in this encounter Plan of Treatment Upcoming Encounters Date Type Department Care Team (Late st Contact Info) Description 03/17/2024 10:00 AM EST Office Visit Cardiology, [address] [place] [address] Audi Siu DO [address] [place] [id number] Scheduled Orders Name Type Priority Associated Diagnoses Orde r Schedule URINALYSIS, REFLEX TO MICROSCOPIC Lab Routine Other abnormal findings in urine Expected: 01/06/2024, Expires: 12/05/2024 Scheduled Procedures Name Priority Associated Diagnoses Date/Ti [...] 04/16/2019, Additional history exists GFR 08/20/2024 08/21/2023, 020 11/2022, 01/22/2020, Additional history exists Albumin/Creatinine Ratio [...] of adult Obstructive sleep apnea (adult) (pediatric) Other abnormal findings in urine documented in this encounter Advance Directives * [...] Power of Attor cornelius? No Care Teams Dobie Man Relationship Specialty Start Date End Date Sunita Duvall CRNP [address] [place] [address] PCP - General Nurse Practitioner 04/13/22 documented as of this encounter
--- NOTE | 2024-01-17 14:54 | Consultation ---
Date of Consultation January 17, 2024 Assessment & Plan (1) Osteoarthritis of left knee: Plan s/p Left TKA: Pain management, DVT prophylaxis and PT/OT per primary team. Continue bowel regimen. Other chronic medical conditions: Anxiety, HTN, asthma -- stable, continue with home medications. DVT prophylaxis: SCDs, chemo DVT prophylaxis per primary team. Full code Time spent: 47 min History of Present Illness Requesting Physician: Dr. Henao Reason for Consultation: Medical management. Attending Physician: Ayo Henao MD History of Present Illness 58-year-old lady with PMH of anxiety, fibromyalgia, asthma, HTN was seen at bedside as part of medical management status post left TKA. Patient was lying in bed, on 1 L oxygen, hemodynamically stable post surgery. Patient denies any febrile illness or sore throat or cough in the last 1 week. Patient denies any chest pain or nausea or vomiting. Patient underwent left TKA after failure of conservative management. Patient is slowly gaining back her sensation over her LLE, hence no pain at Operative site at the time of bedside exam. Allergies Allergy/AdvReac Type Severity Reaction Status Date / Time codeine Allergy Mild ITCHING Verified 01/17/24 07:35 hydrocodone Allergy Mild itching Verified 01/17/24 07:35 latex Allergy Mild skin Verified 01/17/24 07:35 irritation morphine Allergy Mild itch Verified 01/17/24 07:35 nickel Allergy Mild itching Verified 01/17/24 07:35 and rash oxycodone [From OxyContin] Allergy Mild itching/travis Verified 01/17/24 07:35 h tramadol Allergy Mild RASH Verified 01/17/24 07:35 [place] GOLD Allergy Mild itching/travis Uncoded 01/17/24 07:35 h Home Medications Medication Instructions Recorded Confirmed Type albuterol sulfate 90 mcg/actuation 1 inh inhalation QID PRN sob 11/27/23 11/27/23 History aerosol inhaler bupropion HCl 150 mg 24 hr tablet, 150 mg PO QAM 11/27/23 01/17/24 History extended release (Wellbutrin XL) buspirone 10 mg tablet 10 mg PO BID 11/27/23 01/17/24 History celecoxib 200 mg capsule (Celebrex) 200 mg PO QAM 11/27/23 01/17/24 History cetirizine 10 mg capsule (Zyrtec) 10 mg PO BID 11/27/23 01/17/24 History losartan 25 mg tablet 50 mg PO QAM 11/27/23 01/17/24 History montelukast 10 mg tablet 10 mg PO QAM 11/27/23 01/17/24 History multivitamin 1 tab PO QAM 11/27/23 01/17/24 History pregabalin 50 mg capsule 50 mg PO BID 11/27/23 01/17/24 History famotidine 10 mg tablet 10 mg PO BID PRN reflux 11/28/23 01/17/24 History omega-3s 300 mi-kld-zva-other cap PO QAM 11/28/23 History thbun0y-dncq oil 1,000 mg capsule ([place]-3 Fish Oil) omeprazole 20 mg capsule,delayed 40 mg PO QAM 11/28/23 01/17/24 History release valacyclovir 500 mg tablet 1,000 mg PO BID PRN Cold Sores 11/28/23 01/17/24 His tory Patient History Medical History Presence of pessary Atrial septal aneurysm Fibromyalgia Arthritis Cyst of left kidney Diverticulosis GERD (gastroesophageal reflux disease) patient states symptoms are not well controlled-waking at night burping, dysgeusia, dry heaving-states she is taking omeprazole and famotidine regularly Thyroid nodule no details/no biopsy History of anemia Anxiety and depression Migraine Aortic aneurysm pcp monitors size yearly>no cads Hypertension Asthma has not needed inhaler for over 1 year Sleep apnea no device Surgical History History of bilateral breast reduction surgery History of carpal tunnel release right x 2 S/P trigger finger release right H/O arthroscopic knee surgery right/left History of esophagogastroduodenoscopy (EGD) History of bilateral tubal ligation History of colonoscopy History of colon resection r/t diverticulitis H/O laparoscopy adhesions removed History of cholecystectomy History of tooth extraction Hx of LASIK x 2 Social History Smoking Status: Never smoker Second Hand Exposure: Yes (occas.); Do You Dip or Chew Tobacco: No; Hx Alcohol Use: No Preferred Language: Japanese [employer] 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 Physical Exam Physical Exam: GENERAL: Alert and oriented x3. NAD, on 1L NC O2. HEENT: No pallor, no icterus. Pupils equal, round and reactive to light. Oral mucosa moist. NECK: No JVD, no neck masses. HEART: S1 and S2 heard. Regular rate and rhythm. No murmur, no gallop. RESPIRATORY SYSTEM: Normal AP diameter. No accessory muscle use. No wheezing, no crackles. ABDOMEN: Soft, bowel sounds present, nontender, no distention. CENTRAL NERVOUS SYSTEM: No facial droop. Speech is clear. Obeys simple commands. Moves extremities. EXTREMITIES: No edema, no erythema seen. LLE w/ decreased sensation over ankle/foot area and inability to wiggle the toes. Improving sensation above and is able to move the LLE but can't wiggle toes yet. Dressing LLE w/o soakage. wound vac with minimal serosanguineous collection noted. Results & Data Vital Signs (Past 12 Hours) Vital Signs Temp Pulse Pulse Resp BP Pulse Ox O2 Del Method 01/17/24 14:05 36.5 C 68 18 126/81 96 Room Air 01/17/24 13:40 73 20 135/95 99 Nasal Cannula 01/17/24 13:27 Nasal Cannula 01/17/24 13:10 36.5 C 70 16 137/86 96 Nasal Cannula 01/17/24 12:55 61 18 133/85 97 Nasal Cannula 01/17/24 12:45 36.5 C 66 20 126/85 97 Nasal Cannula 01/17/24 12:35 67 18 117/80 95 Nasal Cannula 01/17/24 12:25 65 18 124/82 96 Nasal Cannula 01/17/24 12:17 36.1 C L 76 19 113/78 97 Nasal Cannula 01/17/24 07:52 36.7 C 83 20 167/105 H 98 Room Air O2 Flow Rate 01/17/24 14:05 01/17/24 13:40 1 01/17/24 13:27 2 01/17/24 13:10 2 01/17/24 12:55 2 01/17/24 12:45 2 01/17/24 12:35 2 01/17/24 12:25 3 01/17/24 12:17 3 01/17/24 07:52 (1) Osteoarthritis of left knee Osteoarthritis type: primary Qualified Code(s): M17.12 - Unilateral primary osteoarthritis, left knee
[2024-01-17] MEDS: TRANEXAMIC ACID / 0.7% NACL 1,000 MG/100 ML BAG IV SCH (17:15)
--- NOTE | 2024-01-17 17:16 | Anesthesiology Progress Note ---
Date of Service January 17, 2024 Anesthesia Post Procedure Vital Signs Vital Signs: Temp Pulse Pulse Resp BP Pulse Ox O2 Del Method 01/17/24 16:07 36.7 C 86 18 138/75 97 Room Air 01/17/24 15:09 36.7 C 62 18 117/73 96 Room Air 01/17/24 14:05 36.5 C 68 18 126/81 96 Room Air 01/17/24 13:40 73 20 135/95 99 Nasal Cannula 01/17/24 13:27 Nasal Cannula 01/17/24 13:10 36.5 C 70 16 137/86 96 Nasal Cannula 01/17/24 12:55 61 18 133/85 97 Nasal Cannula 01/17/24 12:45 36.5 C 66 20 126/85 97 Nasal Cannula 01/17/24 12:35 67 18 117/80 95 Nasal Cannula 01/17/24 12:25 65 18 124/82 96 Nasal Cannula 01/17/24 12:17 36.1 C L 76 19 113/78 97 Nasal Cannula 01/17/24 07:52 36.7 C 83 20 167/105 H 98 Room Air O2 Flow Rate 01/17/24 16:07 01/17/24 15:09 01/17/24 14:05 01/17/24 13:40 1 01/17/24 13:27 2 01/17/24 13:10 2 01/17/24 12:55 2 01/17/24 12:45 2 01/17/24 12:35 2 01/17/24 12:25 3 01/17/24 12:17 3 01/17/24 07:52 Pain Intensity Left Knee: Pain Intensity: 7 Transfer of Care Handoff Completed per policy Notes Mental Status: alert / awake / arousable and participated in evaluation Patient Amnestic to Procedure: Yes Nausea / Vomiting: adequately controlled Pain: adequately controlled Airway Patency, RR, SpO2: stable & adequate BP & HR: stable & adequate Hydration State: stable & adequate Neuraxial Anesthesia: was administered and sensory block is resolving Anesthetic Complications: no major complications apparent and Pt Satisfied with anesthetic care
[2024-01-17] MEDS: KETOROLAC TROMETHAMINE 15 MG/ML VIAL IV PRN (17:18)
[2024-01-17 19:40] VITALS: RESP 16
[2024-01-17] MEDS: CETIRIZINE HCL 10 MG TABLET PO SCH (20:50)
[2024-01-17] MEDS: busPIRone 5 MG TAB PO SCH (20:50)
[2024-01-17] MEDS: ASPIRIN 81 MG ECTAB PO SCH (20:50)
[2024-01-17] MEDS: SENNA 8.6 MG TAB PO SCH (20:53)
[2024-01-17] MEDS: PREGABALIN 50 MG CAP PO SCH (20:53)
[2024-01-17] MEDS: DOCUSATE SODIUM 100 MG CAP PO SCH (20:53)
[2024-01-17] MEDS: MEPERIDINE HCL 25 MG/ML CARP/VIAL IV PRN (21:06)
[2024-01-18 06:23] LABS: Hematocrit (blood only) 36.6 % (37.0-47.0); Hemoglobin 12.2 g/dl (12.0-16.0); Mean Corpuscular Hemoglobin 30.2 pg (25.0-34.0); Mean Corpuscular Hgb Conc 33.3 g/dL (32.0-36.0); Mean Corpuscular Volume 90.6 fL (80.0-100.0); Platelet Count 236 K/uL (130-400); RDW Coefficient of Variation 12.2 % (11.5-14.5); RDW Standard Deviation 40.4 fL (36.4-46.3); Red Blood Count 4.04 M/uL (4.20-5.40); White Blood Count 14.83 K/ul (4.8-10.8)
[2024-01-18 06:40] LABS: BUN Creatinine Ratio 20.4 (10-20); Calcium 9.4 mg/dl (8.6-10.3); Creatinine Clr Calc Pharmacy 61.9 ml/min; Magnesium 2.1 mg/dl (1.7-2.4); Phosphorus 3.3 mg/dl (2.5-4.9); Potassium 3.8 mmol/L (3.5-5.1)
[2024-01-18 07:11] VITALS: BP 136/89; PULSE 70; TEMP 98.2; O2SAT 97
[2024-01-18] MEDS: dexAMETHasone 10 MG in SYRINGE 0 ML IV SCH (07:37)
[2024-01-18] MEDS: buPROPion XL 150 MG TABCR PO SCH (08:11)
[2024-01-18] MEDS: PANTOprazole 40 MG TAB PO SCH (08:11)
[2024-01-18] MEDS: MONTELUKAST SODIUM 10 MG TABLET PO SCH (08:11)
[2024-01-18] MEDS: MULTIVITAMIN TAB PO SCH (08:12)
[2024-01-18] MEDS: LOSARTAN POTASSIUM 50 MG TAB PO SCH (08:12)
--- NOTE | 2024-01-18 08:14 | Orthopedic Progress Note ---
Date of Service January 18, 2024 Assessment & Plan (1) Osteoarthritis of left knee: Plan: Osteoarthritis left knee with failed conservative management. Patient has medial compartment osteoarthritis. Discussion was for unicompartmental versus total knee replacement. Patient chose total knee replacement which was performed now postop day 1 doing well. Patient wants to do outpatient physical therapy at [facility] in [place]. Patient okay for discharge today. Drain can be discontinued prior to discharge. Continue with Kimberly Acticoat wound VAC with appropriate instructions. Follow-up in 2 weeks. Admission and Anticipated Discharge Date Admission Date: January 17, 2024 Subjective Knee is a little sore no other complaints Review of Systems Review of Systems: No chest pain shortness of breath or medical issues Physical Exam Musculoskeletal: Left knee dressing intact. Circulation sensorimotor exam intact. Results & Data Vital Signs (Past 12 Hours) Vital Signs Temp Pulse Resp BP Pulse Ox O2 Del Method 01/18/24 07:10 36.8 C 70 16 136/89 97 Room Air 01/18/24 02:59 36.4 C L 63 16 133/87 95 Room Air 01/17/24 23:05 36.6 C 74 16 134/82 96 Room Air Diagnostic Findings Radiographs demonstrate well aligned total knee replacement (1) Osteoarthritis of left knee Osteoarthritis type: primary Qualified Code(s): M17.12 - Unilateral primary osteoarthritis, left knee
[2024-01-18] MEDS ORDERED: NON-FORMULARY MEDICATION (Multivitamin Tablet) PO SCH (09:00)
--- NOTE | 2024-01-18 09:30 | Hospitalist Progress Note ---
Date of Service January 18, 2024 Assessment & Plan (1) Osteoarthritis of left knee: Plan Osteoarthritis of left knee s/p Left TKA by on 01/17/24 Postoperative acute blood loss anemia Continue PT OT as able Pain control Bowel regimen to prevent constipation Appreciate orthopedics help Monitor CBC, no indication for blood transfusion currently Incentive spirometry Advised to follow-up with PCP on discharge DVT prophylaxis per primary team Other chronic medical conditions: Anxiety HTN Asthma continue with home medications. DVT Px: As per primary team CODE STATUS full code Admission and Anticipated Discharge Date Admission Date: January 17, 2024 Subjective Patient is seen and examined at bedside States having left knee pain at surgical site but otherwise no complaints Denies any chest pain, dyspnea, nausea, vomiting, abdominal pain Plan to be discharged today Review of Systems Review of Systems: All systems reviewed & are unremarkable except as noted in Subjective Physical Exam Physical Exam: Physical Exam: Vitals signs as noted above General Appearance:Moderately built and nourished, no apparent distress Head: normocephalic, Atraumatic Eyes: normal inspection, EOMI Neck: supple, Trachea midline Respiratory/Chest: Normal breath sounds, CTA, No accessory muscle use Cardiovascular: S1, S2, No murmur Abdomen/GI:Soft, Non tender, Bowel sounds present Extremities/Musculoskeletal:normal inspection, Trace edema, +L knee surgical site in dressing, drain Neurologic/Psych:AAOX3, grossly no focal neurological deficits Skin: normal color, warm Results & Data Results & Data Vital Signs (Past 12 Hours) Vital Signs Temp Pulse Resp BP Pulse Ox O2 Del Method 01/18/24 07:10 36.8 C 70 16 136/89 97 Room Air 01/18/24 02:59 36.4 C L 63 16 133/87 95 Room Air 01/17/24 23:05 36.6 C 74 16 134/82 96 Room Air Laboratory Results Short CBC 01/18/24 Range/Units 05:39 WBC 14.83 H (4.8-10.8) K/ul Hgb 12.2 (12.0-16.0) g/dl Hct 36.6 L (37.0-47.0) % Plt Count 236 (130-400) K/uL BMP 01/18/24 05:39 Sodium 139 Potassium 3.8 Chloride 104 Carbon Dioxide 29 BUN 21 Creatinine 1.03 Glucose 121 H Calcium 9.4 (1) Osteoarthritis of left knee Osteoarthritis type: primary Qualified Code(s): M17.12 - Unilateral primary osteoarthritis, left knee
[2024-01-18] MEDS ORDERED: CeleBREX 200 MG CAP PO SCH (21:00)
--- NOTE | 2024-01-23 17:14 | Discharge Summary ---
Date of Service January 23, 2024 Admission HPI Per Admitting Provider 58-year-old female left knee pain failed conservative management. Prior arthroscopic surgery left knee. 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 Prior adverse reaction to viscosupplement injection. 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 Patient denies headaches, sweats, fevers, chills, double vision, blurred vision, cough, sore throat, dysphagia, chest pain, sob, wheezing, n/v/d/c, numbness, tingling, fatigue, urinary symptoms, mood disorders. ROS positive for asthma multiple areas of arthritis of the spine arthritis in chest and jaws has acid reflux hiatal hernia obesity. Principal Diagnosis Left knee osteoarthritis Discharge Exam Constitutional WD/WN, vitals as above no acute distress Musculoskeletal Knee: + surgical incision (Left knee dressing C/D/I); no skin erythema and no ecchymosis Skin no rashes, warm and dry Trauma: no evidence of skin trauma Neurologic normal touch/pain/proprioception Psychiatric A+Ox3, euthymic affect Speech: normal rate/rhythm/volume of speech Discharge Data Allergies Allergy/AdvReac Type Severity Reaction Status Date / Time codeine Allergy Mild ITCHING Verified 01/17/24 07:35 hydrocodone Allergy Mild itching Verified 01/17/24 07:35 latex Allergy Mild skin Verified 01/17/24 07:35 irritation morphine Allergy Mild itch Verified 01/17/24 07:35 nickel Allergy Mild itching Verified 01/17/24 07:35 and rash oxycodone [From OxyContin] Allergy Mild itching/travis Verified 01/17/24 07:35 h tramadol Allergy Mild RASH Verified 01/17/24 07:35 [place] GOLD Allergy Mild itching/travis Uncoded 01/17/24 07:35 h Consultations 01/14/24 16:36 Consult Hospitalist Routine Procedures Performed Operation Date: 01/17/24 09:25 Actual Procedures p Left Total Knee Arthroplasty(Left) - Ayo Henao MD Ordered Studies 01/17/24 05:00 US - OR guided needle placemen Routine Hospital Course (1) Osteoarthritis of left knee: Osteoarthritis left knee with failed conservative management. Patient has medial compartment osteoarthritis. Discussion was for unicompartmental versus total knee replacement. Patient chose total knee replacement which was performed now postop day 1 doing well. Patient wants to do outpatient physical therapy at [facility] in [place]. Patient okay for discharge today. Drain can be discontinued prior to discharge. Continue with Sima Acticoat wound VAC with appropriate instructions. Follow-up in 2 weeks. Total Time Total Time Spent Total Time Spent (In Minutes): 20 Discharge Plan Discharge Items Patient Disposition: Home - Self-Care Reason For Visit: POSTOP LEFT TOTAL KNEE ARTHROPLASTY Discharge Diagnosis: Left knee osteoarthritis Activity: Per Instructions section Non-emergency contact: Surgeon Call non-emergency contact if: your pain is not controlled, your pain is worsening and your temperature is above 101 Follow-up/Referrals: PCP,SMOOTH [Primary Care Provider] - Diet: Regular Addtl Attending Provider Instructions: ACTIVITY RECOMMENDATIONS: SELF CARE INSTRUCTIONS AFTER TOTAL KNEE REPLACEMENT A. You may need to continue a physical therapy program after discharge from the hospital. There are several options available to you. Your doctor will assist you in selecting the best one for you. 1. An out-patient facility 3 times a week for therapy. 2. Home therapy for 1 to 2 weeks with outpatient therapy to follow. 3. Continue working on all exercises taught by physical therapy three times a day for 20 minutes on non-therapy days. Your goals should be to increase the bending of your knee to 90 degrees and beyond and to fully straighten your knee. Ice and elevate knee after exercise. B. Weight as tolerated with a walker or as instructed by your physician. C. It is okay to shower if minimal to no drainage from incision. No Baths. Do not soak wound. D. Make walking a part of your daily routine. Be up as much as comfortable with rest periods throughout the day. Rest with leg elevation is very important. Use the ice wrap frequently for the first 3-4 weeks. E. There are no restrictions on activities. You may ride in a car, shop, participate in thread winder automatic and all social activities. F. Wear the long elastic stockings (BYRON hose) 20 hours a day for one month after surgery. They can be removed several times a day for laundering and when showering. G. You may return to previous diet. I. SIMA dressing: You have a SIMA dressing on your surgical wound. It will remain in place for 7 days from surgery. You will be provided with a booklet with the do's and don'ts with the dressing in place. After 7 days, the dressing may be removed. If there is drainage from the surgical incision, you may cover the wound with dry dressings SPECIAL CARE INSTRUCTIONS: VERY IMPORTANT TO READ AND REVIEW A. Take Coumadin, Xarelto, Aspirin or Lovenox (blood thinning medications) as directed by your doctor. If on Coumadin, have a pro-time (blood test) drawn according to your doctor's instructions. This will tell the doctor how well the Coumadin is thinning your blood. B. There are a few signs you need to watch for after you are home. Call [facility] if you notice any of the followin. Increased severe knee pain. Some pain is expected especially when you exercise. 2. Increased swelling in your leg or knee; pain or swelling of the calf muscle in either lower leg. 3. Any redness or fluid drainage from the incision. 4. Shortness of breath or chest pain. 5. A Temperature of 101 degrees F or greater. C. Please call [facility] at if you have any concerns or questions about your operation or recovery. The doctor or his nurse will return your call promptly. D. You must take antibiotics before dental work, bladder, bowel or other surgery. Your doctor will provide you with a permanent care to carry describing this precaution. FOLLOW UP VISIT: If appointment is not already scheduled: Please call [facility] to make a follow-up appointment for 2 weeks after your surgery at . Pending Studies at Discharge: No Stand-Alone Forms: [facility], Pain - Opioid Pain Management, Smoking Cessation Medications and DC Order Prescriptions: New acetaminophen [Tylenol Extra Strength] 500 mg Tablet 1,000 mg PO Q8 Qty: 90 0RF aspirin 81 mg Tablet,Delayed Release (Dr/Ec) 81 mg PO BID Qty: 60 0RF celecoxib [Celebrex] 200 mg Capsule 200 mg PO BID Qty: 60 0RF oxycodone 5 mg Tablet 5 mg PO Q4H PRN (Reason: pain) Qty: 20 0RF Continued buspirone 10 mg Tablet 10 mg PO BID Patient Comments: unsure of dose>will confirm at [facility] apt montelukast 10 mg Tablet 10 mg PO QAM bupropion HCl [Wellbutrin XL] 150 mg Tablet Extended Release 24 Hr 150 mg PO QAM Patient Comments: unsure of dose>will confirm at [facility] apt pregabalin 50 mg Capsule 50 mg PO BID Zyrtec 10 mg Capsule 10 mg PO BID multivitamin Tablet 1 tab PO QAM losartan 25 mg Tablet 50 mg PO QAM Patient Comments: unsure of dose>will confirm at [facility] apt albuterol sulfate 90 mcg/actuation Hfa Aerosol Inhaler 1 inh INHALATION QID PRN (Reason: sob) famotidine 10 mg Tablet 10 mg PO BID PRN (Reason: reflux) [place]-3 Fish Oil 300-1,000 mg Capsule PO QAM omeprazole 20 mg Capsule,Delayed Release(Dr/Ec) 40 mg PO QAM valacyclovir 500 mg Tablet 1,000 mg PO BID PRN (Reason: Cold Sores) Discontinued celecoxib [Celebrex] 200 mg Capsule 200 mg PO QAM Discharge Orders: Discharge Order (Routine); Ordered 01/18/24 Ordered By: Ayo Weinberg/Other Patient Handouts: DVT Post Op Prevention, Tips After Knee Surgery, Knee Replacement Total Dc Admission Data Admit Date/Time: 01/17/24 12:25 Attending Provider: Ayo Henao Admit Provider: Ayo Henao Primary Care Provider: PCP,NO Other Interventions: Discharge Summary Assessment (RN) Last Done: 01/18/24 10:13
== END 2024-01-18 12:34 | disposition home or self-care (01) ==
LOC: 3E 07:22 → ASU 07:22